=== PATIENT | male | born 1950 ===

== ENCOUNTER 2017-01-28 09:48 | Observation (INO) | payer MEDICARE, OTHER ==
[2017-01-28 10:00] VITALS: BMI 28.4
--- NOTE | 2017-01-28 10:41 | ED PDOC ---
Lower Extremity Pain/Injury Time Seen by Provider: 01/28/17 09:59 Chief Complaint (Nursing): Hip Pain Chief Complaint (Provider): Hip pain, left History Per: Patient History/Exam Limitations: no limitations Onset/Duration Of Symptoms: Days (A month) Current Symptoms Are (Timing): Still Present Severity: Moderate Additional History Per: Patient Additional Complaint(s): 66 y/o male brought in by PMD for left hip pain for a month. Pain is worse with movement and ambulation. Denies trauma. No weakness, paresthesias, numbness. No bladder or bowel incontinence. Patient had lumbar spinal surgery several years ago. PMD: Deo Hargrove MD Past Medical History Reviewed: Historical Data, Nursing Documentation, Vital Signs Vital Signs: Last Vital Signs Temp 97 F L 01/28/17 09:58 Pulse 54 L 01/28/17 09:58 Resp BP 137/79 01/28/17 09:58 Pulse Ox 98 01/28/17 09:58 - Medical History PMH: Cardia Arrhythmia (nora=code), HTN Denies: Depression - Surgical History Surgical History: Tonsillectomy Other surgeries: Lumbar spinal surgery several years ago - Family History Family History: States: Unknown Family Hx - Home Medications Home Medications: Ambulatory Orders Medication Instructions Recorded Ascorbic Acid [Vitamin C 500 mg 1 tab PO DAILY 01/28/17 Tab] Brimonidine 0.2% [Alphagan 0.2% 1 drop LEFTEYE BID 01/28/17 Opht] Calcium Carbonate/Vitamin D3 1 tab PO BID 01/28/17 [Caltrate 600 Plus D3 Tablet] Cyanocobalamin (Vitamin B-12) 1 spray [place]ON SUN 01/28/17 [Nascobal] Dorzolamide 2% [Trusopt] 1 drop LEFTEYE BID 01/28/17 Febuxostat [Uloric] 80 mg PO DAILY 01/28/17 Glucosa Roque 2Kcl/Chondroitin Roque 1 cap PO DAILY 01/28/17 [Glucosamine & Chondroitin Cap] L.acidoph,Paracasei, B.lactis 1 cap PO DAILY 01/28/17 [Probiotic] Levothyroxine [Synthroid] 25 mcg PO DAILY 01/28/17 Mangosteen 1 tab PO BID 01/28/17 [place]-3 Fatty Acids/Fish Oil [Fish 1 cap PO BID 01/28/17 Oil 1,000 mg Capsule] Pyridostigmine [Mestinon Tab] 60 mg PO TID 01/28/17 Rosuvastatin Calcium [Crestor] 10 mg PO HS 01/28/17 Timolol 0.5% Ophth [Timoptic 0.5% 1 drop RIGHTEYE DAILY 01/28/17 Ophth Soln] Turmeric/Turmeric Root Extract 1 cap PO BID 01/28/17 [Turmeric 500 mg Capsule] Vitamin E [Vitamin E 400 Units Cap] 400 unit PO DAILY 01/28/17 predniSONE [predniSONE Tab] 25 mg PO DAILY 01/28/17 valACYclovir [Valtrex] 1 gm PO DAILY 01/28/17 - Allergies Allergies/Adverse Reactions: Allergies Allergy/AdvReac Type Severity Reaction Status Date / Time No Known Allergies Allergy Verified 02/21/14 16:39 Review of Systems ROS Statement: Except As Marked, All Systems Reviewed And Found Negative Constitutional: Negative for: Other (Trauma) Genitourinary Male: Negative for: Incontinence (Bladder or bowel) Musculoskeletal: Positive for: Other (Left hip pain) Neurological: Negative for: Weakness, Numbness, Other (paresthesias) Physical Exam - Reviewed Nursing Documentation Reviewed: Yes Vital Signs Reviewed: Yes - Physical Exam Appears: Positive for: Well, Non-toxic, No Acute Distress Head Exam: Positive for: ATRAUMATIC Skin: Positive for: Normal Color, Warm, Dry Eye Exam: Positive for: Normal appearance Neck: Positive for: Normal, Supple Cardiovascular/Chest: Positive for: Regular Rate, Rhythm Respiratory: Positive for: Normal Breath Sounds. Negative for: Rales, Rhonchi, Wheezing Pulses-Dorsalis Pedis (L): 2+ Pulses-Dorsalis Pedis (R): 2+ Back: Positive for: Vertebral Tenderness (Tenderness to the left lumbar area), Other (Straight leg raise greater than 30 degrees) Extremity: Positive for: Normal ROM (x4) Neurologic/Psych: Positive for: Alert, Oriented. Negative for: Motor/Sensory Deficits - Laboratory Results Result Diagrams: 01/29/17 07:45 01/29/17 07:45 - ECG O2 Sat by Pulse Oximetry: 98 (RA) Pulse Ox Interpretation: Normal Medical Decision Making Medical Decision Making: Initial Impression: * Brought in by PMD for left hip pain for a month. Initial Plan: * Blood work up * EKG * Chest x-ray * Morphine Time: 10:30 10:35. Patient evaluated by Dr. Hargrove. DDx: intractable pain Scribe Attestation Documented by Tiffanie hickman acting as a scribe for Lorelei Shook MD. Provider Attestation: All medical record entries made by the Scribe were at my direction and personally dictated by me. I have reviewed the chart and agree that the record accurately reflects my personal performance of the history, physical exam, medical decision making, and the department course for this patient. I have also personally directed, reviewed, and agree with the discharge instructions and disposition. Disposition - Clinical Impression Clinical Impression: Intractable pain, Hip pain - Patient ED Disposition Is Patient to be Admitted: Yes - Disposition Disposition Time: 10:32 Condition: STABLE - Pt Status Changed To: Hospital Disposition Of: Inpatient - Admit Certification Admit to Inpatient:: After my assessment, the patient will require hospitalization for at least two midnights. This is because of the severity of symptoms shown, intensity of services needed, and/or the medical risk in this patient being treated as an outpatient. - POA Present On Arrival: None
--- NOTE | 2017-01-28 10:56 | RAD ---
HISTORY: Medical clearance COMPARISON: Frontal chest radiograph 03/15/2012. FINDINGS: LUNGS: A dense nodular focus is appreciate the left base laterally which appears more dense than bone may reflect an interval calcified granuloma. No definite acute infiltrate is appreciated. PLEURA: No significant pleural effusion identified, no pneumothorax apparent. CARDIOVASCULAR: Normal. OSSEOUS STRUCTURES: No significant abnormalities. VISUALIZED UPPER ABDOMEN: Normal. OTHER FINDINGS: Sternotomy wires are again identified. IMPRESSION: Interval dense nodular focus is seen at the left base suspicious for calcified granuloma. No acute infiltrate or pleural effusion identified this time.
[2017-01-28 11:13] LABS: BASO # 0.1 K/uL (0.0-0.2); BASO % 0.5 % (0.0-2.0); EOS % 0.1 % (0.0-4.0); HEMATOCRIT 45.9 % (35.0-51.0); LYMPH % 7.1 % (20.0-40.0); MEAN CELL VOLUME 95.4 fl (80.0-94.0); MEAN CORPUSCULAR HEMOGLOBIN 32.9 pg (27.0-31.0); MEAN CORPUSCULAR HGB CONC 34.5 g/dL (33.0-37.0); MEAN PLATELET VOLUME 7.9 fl (7.2-11.7); MONO # 0.8 K/uL (0.0-0.8); MONO % 6.2 % (0.0-10.0); NEUT # 11.8 K/uL (1.8-7.0); NEUT % 86.1 % (50.0-75.0); NRBC % 0.2 % (0.0-0.0); PLATELET COUNT 197 K/uL (130-400); WHITE BLOOD COUNT 13.7 K/uL (4.8-10.8)
[2017-01-28 11:19] LABS: ALB/GLOB RATIO 1.4 (1.0-2.1); ALKALINE PHOSPHATASE 47 U/L (38-126); ALT/SGPT 57 U/L (21-72); AST/SGOT 47 U/L (17-59); BILIRUBIN,TOTAL 1.6 mg/dl (0.2-1.3); BLOOD UREA NITROGEN 15 mg/dl (9-20); CALCIUM 9.8 mg/dL (8.4-10.2); CARBON DIOXIDE 25 mmol/L (22-30); CHLORIDE 108 mmol/L (98-107); GFR AFRICAN-AMERICAN > 60; GLUCOSE,RANDOM 98 mg/dL (75-110); POTASSIUM 4.4 MMOL/L (3.6-5.0); SODIUM 142 mmol/l (132-148); TOTAL PROTEIN 6.9 G/DL (6.3-8.2)
[2017-01-28 12:10] LABS: NEUTROPHIL 87 % (42-75); REACTIVE LYMPHOCYTES 2 % (0-0); TOTAL CELLS COUNTED 100
[2017-01-28] MEDS ORDERED: Oxycodone/Acetaminophen 5/325 mg Tab PO PRN ×2 (13:07→13:08)
--- NOTE | 2017-01-28 13:11 | CP.PCM.HP ---
History of Present Illness - History of Present Illness History of Present Illness: 66 year old male with PMH of myasthenia gravis, s/p thyroidectomy presented to [facility] with complaints of intractable back pain. He has history of mysethenia gravis and lumbar stenosis. Pain is exacerbated with standing, leaning forward and ambulation. No history of trauma. No weakness or paresthesias, pain does not radiate anywhere and is localized to lumbar spine. No bladder or bowel incontinence. He has right sided residual weakness of upper and lower extremity, worse in upper extremitiy. He has a cataract on his right eye. He denies any chest pain, dyspnea, abdominal pain, nausea, vomiting, diarrhea or constipation, pedal edema. PMD: Dr. Hargrove Medications: Prednisone, mestinon, uloric, crestor levothyroxine, valacyclovir. 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) Other/Comment: Myasthenia Gravis - HEENT Hx HEENT Problems: Yes Hx Cataracts: Yes (with surgery) - RENAL Hx Chronic Kidney Disease: No - ENDOCRINE/METABOLIC Hx Endocrine Disorders: No - HEMATOLOGICAL/ONCOLOGICAL Hx Blood Transfusions: No Hx Blood Transfusion Reaction: No - INTEGUMENTARY Hx Dermatological Problems: No - MUSCULOSKELETAL/RHEUMATOLOGICAL Hx Musculoskeletal Disorders: Yes Hx Back Pain: Yes Hx Falls: No - GASTROINTESTINAL Hx Gastrointestinal Disorders: No - GENITOURINARY/GYNECOLOGICAL Hx Genitourinary Disorders: No - PSYCHIATRIC Hx Psychophysiologic Disorder: No Hx Depression: No Hx Substance Use: No - SURGICAL HISTORY Hx Cataract Extraction: Yes Hx Tonsillectomy: Yes Other/Comment: Thymectomy, Tracheosotomy and Reversal - ANESTHESIA Hx Anesthesia: Yes Hx Anesthesia Reactions: Yes (unknown) Hx Malignant Hyperthermia: Yes (unknown) Has any member of the family had a problem w/ anesthesia?: No Meds Allergies/Adverse Reactions: Allergies Allergy/AdvReac Type Severity Reaction Status Date / Time No Known Allergies Allergy Verified 02/21/14 16:39 Physical Exam - Constitutional Appears: In Acute Distress (2' to pain) - Head Exam Head Exam: ATRAUMATIC, NORMAL INSPECTION, NORMOCEPHALIC - Eye Exam Additional comments: cataract of right eye - ENT Exam ENT Exam: Mucous Membranes Moist - Respiratory Exam Respiratory Exam: Clear to Auscultation Bilateral, NORMAL BREATHING PATTERN - Cardiovascular Exam Cardiovascular Exam: REGULAR RHYTHM, +S1, +S2 - GI/Abdominal Exam GI & Abdominal Exam: Normal Bowel Sounds, Soft. absent: Distended, Guarding, Organomegaly, Tenderness - Rectal Exam Rectal Exam: Deferred - Extremities Exam Extremities exam: Positive for: normal inspection. Negative for: pedal edema - Back Exam Back exam: NORMAL INSPECTION, tenderness. absent: rash noted - Neurological Exam Neurological exam: Alert Additional comments: gait not assessed - Psychiatric Exam Psychiatric exam: Normal Affect, Normal Mood - Skin Skin Exam: Dry, Intact, Normal Color, Warm Results - Vital Signs Recent Vital Signs: Last Vital Signs Temp 97.7 F 01/28/17 12:10 Pulse 61 01/28/17 12:10 Resp 17 01/28/17 12:11 BP 144/88 01/28/17 12:10 Pulse Ox 99 01/28/17 12:10 - Labs Result Diagrams: 01/28/17 10:35 01/28/17 10:35 Labs: Laboratory Results - last 24 hr 01/28/17 01/28/17 01/28/17 10:35 10:35 10:35 WBC 13.7 H RBC 4.81 Hgb 15.8 Hct 45.9 MCV 95.4 H MCH 32.9 H MCHC 34.5 RDW 18.0 H Plt Count 197 MPV 7.9 Neut % (Auto) 86.1 H Lymph % (Auto) 7.1 L [place] % (Auto) 6.2 Eos % (Auto) 0.1 Baso % (Auto) 0.5 Neut # 11.8 H Lymph # 1.0 [place] # 0.8 Eos # 0.0 Baso # 0.1 Neutrophils % (Manual) 87 H Band Neutrophils % 1 Lymphocytes % (Manual) 5 L Reactive Lymphs % 2 H Monocytes % (Manual) 5 Toxic Granulation Present Platelet Estimate Normal Anisocytosis (manual) Slight PT 10.5 INR 1.0 APTT 28.0 Sodium 142 Potassium 4.4 Chloride 108 H Carbon Dioxide 25 Anion Gap 13 BUN 15 Creatinine 1.2 Est GFR ( Amer) > 60 Est GFR (Non-Af Amer) > 60 Random Glucose 98 Calcium 9.8 Total Bilirubin 1.6 H AST 47 ALT 57 Alkaline Phosphatase 47 Total Protein 6.9 Albumin 4.0 Globulin 2.9 Albumin/Globulin Ratio 1.4 Assessment & Plan - Assessment and Plan (Free Text) Assessment: 66 year old male with hx of myasthenia gravis and lumbar stenosis admitted for intractable back pain. Will obtain Neurosurgery consult, Dr. Boucher and Cardio consult: Dr. Neal. #Intractable pain #Lumbar stenosis #Myesthenia gravis #Hypothyroidism, s/p thyroidectomy #DVT Prophylaxis -pain control as ordered -resume home medications -cbc/bmp/pt/ptt/inr -ekg, echo -CXR -consults as above patient seen and examined with attending
[2017-01-28 16:27] VITALS: RESP 18
--- NOTE | 2017-01-28 16:51 | CP.PCM.CON ---
History of Present Illness - History of Present Illness History of Present Illness: Patient is a 66 year old male with PMH, HTN, CVA who presents with intractable back pain. The patient has a previous CVA and has had a previous back surgery. The patient denies chest pain or dyspnea. Review of Systems - Constitutional Constitutional: absent: As Per HPI, Anorexia, Chills, Daytime Sleepiness, Excessive Sweating, Fatigue, Fever, Frequent Falls, Headache, Increased Appetite , Lethargy, Malaise, Night Sweats, Snoring, Sleep Apnea, Weight Gain, Weight Loss, Weakness, Other - EENT Eyes: absent: As Per HPI, Blind Spots, Blurred Vision, Change in Vision, Decreased Night Vision, Diplopia, Discharge, Dry Eye, Exophthalmos, Floaters, Irritation, Itchy Eyes, Loss of Peripheral Vision, Pain, Photophobia, Requires Corrective Lenses, Sees Flashes, Spots in Vision, Tunnel Vision, Other Visual Disturbances, Loss of Vision, Other Nose/Mouth/Throat: absent: As Per HPI, Epistaxis, Nasal Congestion, Nasal Discharge, Nasal Obstruction, Nasal Trauma, Nose Pain, Post Nasal Drip, Sinus Pain, Sinus Pressure, Bleeding Gums, Change in Voice, Dental Pain, Dry Mouth, Dysphagia, Halitosis, Hoarsness, Lip Swelling, Mouth Lesions, Mouth Pain, Odynophagia, Sore Throat, Throat Swelling, Tongue Swelling, Facial Pain, Neck Pain, Neck Mass, Other - Cardiovascular Cardiovascular: absent: As Per HPI, Acrocyanosis, Chest Pain, Chest Pain at Rest , Chest Pain with Activity, Claudication, Diaphoresis, Dyspnea, Dyspnea on Exertion, Edema, Irregular Heart Rhythm, Pain Radiating to Arm/Neck/Jaw, Leg Edema, Leg Ulcers, Lightheadedness, Orthopnea, Palpitations, Paroxysmal Nocturnal Dyspnea, Pedal Edema, Radiating Pain, Rapid Heart Rate, Slow Heart Rate, Syncope, Other - Respiratory Respiratory: absent: As Per HPI, Cough, Dyspnea, Hemoptysis, Dyspnea on Exertion , Wheezing, Snoring, Stridor, Pain on Inspiration, Chest Congestion, Excessive Mucous Production, Change in Mucous Color, Pain with Coughing, Other - Gastrointestinal Gastrointestinal: absent: As Per HPI, Abdominal Pain, Belching, Bloating, Change in Bowel Habits, Change in Stool Character, Coffee Ground Emesis, Constipation, Cramping, Diarrhea, Dyspepsia, Dysphagia, Early Satiety, Excessive Flatus, Fecal Incontinence, Heartburn, Hematemesis, Hematochezia, Loose Stools, Melena, Nausea, Odynophagia, Temesmus, Vomiting, Other - Genitourinary Genitourinary: absent: As Per HPI, Change in Urinary Stream, Difficulty Urinating, Dysuria, Flank Pain, Hematuria, Pyuria, Nocturia, Urinary Incontinence, Urinary Frequency, Urinary Hesitance, Urinary Urgency, Voiding Freq/Small Amts, Freq UTI, Hx Renal/Bladder Calculi, Hx /Renal Surgery, Bladder Distension, Other - Musculoskeletal Musculoskeletal: Radiating Pain into Limb - Integumentary Integumentary: absent: As Per HPI, Acne, Alopecia, Bleeding Lesions, Change in Hair, Change in Nails, Change in Pigmentation, Changing Lesions, Dry Skin, Erythema, Furuncle, Hirsutism, Lesions, New Lesions, Non-Healing Lesions, Photosensitivity, Pruritus, Rash, Skin Pain, Skin Ulcer, Sores, Striae, Swelling , Unusual Bruising, Wounds, Jaundice, Other - Neurological Neurological: absent: As Per HPI, Abnormal Gait, Abnormal Hearing, Abnormal Movements, Abnormal Speech, Behavioral Changes, Burning Sensations, Confusion, Convulsions, Disequilibrium, Dizziness, Numbness, Focal Weakness, Frequent Falls , Headaches, Lack of Coordination, Loss of Vision, Memory Loss, Paresthesias, Radicular Pain, Restless Legs, Sensory Deficit, Syncope, Tingling, Tremor, Vertigo, Weakness, Other Visual Disturbances, Other - Psychiatric Psychiatric: absent: As Per HPI, Abnormal Sleep Pattern, Anhedonia, Anxiety, Auditory Hallucinations, Behavioral Changes, Change in Appetite, Change in Libido, Confusion, Depression, Difficulty Concentrating, Hallucinations, Homicidal Ideation, Hopelessness, Irritability, Memory Loss, Mood Swings, Panic Attacks, Paranoia, Suicidal Ideation, Visual Hallucinations, Tactile Hallucinations, Other - Endocrine Endocrine: absent: As Per HPI, Change in Body Appearance, Change in Libido, Cold Intolorance, Deepening of Voice, Excessive Sweating, Fatigue, Flushing, Heat Intolorance, Increase in Ring/Shoe/Hat Size, Palpitations, Polydipsia, Polyphagia, Polyuria, Other - Hematologic/Lymphatic Hematologic: absent: As Per HPI, Easy Bleeding, Easy Bruising, Lymphadenopathy, Other Past Patient History - Infectious Disease Hx of Infectious Diseases: None - Tetanus Immunizations Tetanus Immunization: Unknown - Past Medical History & Family History Past Medical History?: Yes - Past Social History Smoking Status: Never Smoked - CARDIAC Hx Cardiac Disorders: Yes Hx Cardia Arrhythmia: Yes (bradycardia) Hx Hypertension: Yes - PULMONARY Hx Respiratory Disorders: No - NEUROLOGICAL Hx Neurological Disorder: Yes HX Cerebrovascular Accident: Yes (right upper extremity weakness) Other/Comment: Myasthenia Gravis - HEENT Hx HEENT Problems: Yes Hx Cataracts: Yes (with surgery) - RENAL Hx Chronic Kidney Disease: No - ENDOCRINE/METABOLIC Hx Endocrine Disorders: No - HEMATOLOGICAL/ONCOLOGICAL Hx Blood Transfusions: No Hx Blood Transfusion Reaction: No - INTEGUMENTARY Hx Dermatological Problems: No - MUSCULOSKELETAL/RHEUMATOLOGICAL Hx Musculoskeletal Disorders: Yes Hx Back Pain: Yes Hx Falls: No - GASTROINTESTINAL Hx Gastrointestinal Disorders: No - GENITOURINARY/GYNECOLOGICAL Hx Genitourinary Disorders: No - PSYCHIATRIC Hx Psychophysiologic Disorder: No Hx Depression: No Hx Substance Use: No - SURGICAL HISTORY Hx Cataract Extraction: Yes Hx Tonsillectomy: Yes Other/Comment: Thymectomy, Tracheosotomy and Reversal - ANESTHESIA Hx Anesthesia: Yes Hx Anesthesia Reactions: Yes (unknown) Hx Malignant Hyperthermia: Yes (unknown) Has any member of the family had a problem w/ anesthesia?: No Meds Allergies/Adverse Reactions: Allergies Allergy/AdvReac Type Severity Reaction Status Date / Time No Known Allergies Allergy Verified 02/21/14 16:39 - Medications Medications: Current Medications Acetaminophen (Tylenol 325mg Tab) 650 mg PO Q6 PRN PRN Reason: Pain, Mild (1-3) Ascorbic Acid (Vitamin C 500 Mg Tab) 500 mg PO DAILY [facility] Atorvastatin Calcium (Lipitor) 20 mg PO DAILY [facility] Brimonidine Tartrate (Alphagan 0.2% Opht) 1 drop OS BID [facility] Dorzolamide HCl (Trusopt) 1 drop OS BID [facility] Home Med ([place]-3 Fatty Acids/Fish Oil [Fish Oil 1,000 Mg Capsule]) 1 cap PO BID [facility] Home Med (Valacyclovir [Valtrex]) 1 gm PO DAILY [facility] Levothyroxine Sodium (Synthroid) 25 mcg PO DAILY [facility] Oxycodone/Acetaminophen (Percocet 5/325 Mg Tab) 1 tab PO Q4 PRN PRN Reason: Pain, moderate (4-7) Stop: 01/31/17 13:08 Oxycodone/Acetaminophen (Percocet 5/325 Mg Tab) 2 tab PO Q6 PRN PRN Reason: Pain, severe (8-10) Stop: 01/31/17 13:09 Prednisone (Prednisone Tab) 25 mg PO DAILY [facility] Pyridostigmine [place] (Mestinon Tab) 60 mg PO TID [facility] Timolol Maleate (Timoptic 0.5% Ophth Soln) 1 drop OD DAILY [facility] Physical Exam - Constitutional Appears: Non-toxic - Head Exam Head Exam: NORMAL INSPECTION - Eye Exam Eye Exam: Normal appearance - ENT Exam ENT Exam: Mucous Membranes Moist - Neck Exam Neck exam: Positive for: Full Rom - Respiratory Exam Respiratory Exam: NORMAL BREATHING PATTERN - Cardiovascular Exam Cardiovascular Exam: REGULAR RHYTHM - GI/Abdominal Exam GI & Abdominal Exam: Normal Bowel Sounds - Rectal Exam Rectal Exam: Deferred - Extremities Exam Extremities exam: Positive for: pedal edema - Back Exam Back exam: CVA tenderness (L) - Neurological Exam Neurological exam: Alert - Psychiatric Exam Psychiatric exam: Normal Affect - Skin Skin Exam: Normal Color Results - Vital Signs Recent Vital Signs: Last Vital Signs Temp 97.7 F 01/28/17 16:26 Pulse 55 L 01/28/17 16:26 Resp 18 01/28/17 16:26 BP 138/88 01/28/17 16:26 Pulse Ox 97 01/28/17 16:26 - Labs Result Diagrams: 01/28/17 10:35 01/28/17 10:35 Labs: Laboratory Results - last 24 hr 01/28/17 01/28/17 01/28/17 10:35 10:35 10:35 WBC 13.7 H RBC 4.81 Hgb 15.8 Hct 45.9 MCV 95.4 H MCH 32.9 H MCHC 34.5 RDW 18.0 H Plt Count 197 MPV 7.9 Neut % (Auto) 86.1 H Lymph % (Auto) 7.1 L [place] % (Auto) 6.2 Eos % (Auto) 0.1 Baso % (Auto) 0.5 Neut # 11.8 H Lymph # 1.0 [place] # 0.8 Eos # 0.0 Baso # 0.1 Neutrophils % (Manual) 87 H Band Neutrophils % 1 Lymphocytes % (Manual) 5 L Reactive Lymphs % 2 H Monocytes % (Manual) 5 Toxic Granulation Present Platelet Estimate Normal Anisocytosis (manual) Slight PT 10.5 INR 1.0 APTT 28.0 Sodium 142 Potassium 4.4 Chloride 108 H Carbon Dioxide 25 Anion Gap 13 BUN 15 Creatinine 1.2 Est GFR ( Amer) > 60 Est GFR (Non-Af Amer) > 60 Random Glucose 98 Calcium 9.8 Total Bilirubin 1.6 H AST 47 ALT 57 Alkaline Phosphatase 47 Total Protein 6.9 Albumin 4.0 Globulin 2.9 Albumin/Globulin Ratio 1.4 Blood Type Antibody Screen BBK History Checked 01/28/17 10:35 WBC RBC Hgb Hct MCV MCH MCHC RDW Plt Count MPV Neut % (Auto) Lymph % (Auto) [place] % (Auto) Eos % (Auto) Baso % (Auto) Neut # Lymph # [place] # Eos # Baso # Neutrophils % (Manual) Band Neutrophils % Lymphocytes % (Manual) Reactive Lymphs % Monocytes % (Manual) Toxic Granulation Platelet Estimate Anisocytosis (manual) PT INR APTT Sodium Potassium Chloride Carbon Dioxide Anion Gap BUN Creatinine Est GFR ( Amer) Est GFR (Non-Af Amer) Random Glucose Calcium Total Bilirubin AST ALT Alkaline Phosphatase Total Protein Albumin Globulin Albumin/Globulin Ratio Blood Type A POSITIVE Antibody Screen Negative BBK History Checked Patient has bt - EKG Data EKG Interpreted by: Myself Assessment & Plan (1) Spinal stenosis Assessment and Plan: patient has a previous CVA. I recommend echocardiogram to assess LV function. This should be done prior to surgery. Status: Acute
[2017-01-28] MEDS ORDERED: FATTY ACIDS PO SCH (17:00)
[2017-01-28] MEDS ORDERED: OMEGA PO SCH (17:00)
[2017-01-28] MEDS ORDERED: FISH OIL PO SCH (17:00)
[2017-01-28] MEDS: Brimonidine 0.2% 50 DROP/5 ML BOTTLE OS SCH (17:14)
[2017-01-28] MEDS: Dorzolamide 2% Ophth Soln OS SCH (17:14)
[2017-01-28] MEDS ORDERED: Pneumococcal 23-Valent Vaccine IM ONE (21:00)
[2017-01-29 07:33] VITALS: TEMP 97.5; O2SAT 98
[2017-01-29 07:34] VITALS: BP 134/84; PULSE 54
--- NOTE | 2017-01-29 08:01 | CP.PCM.CON ---
History of Present Illness - History of Present Illness History of Present Illness: Dr. 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 Past Patient History - Infectious Disease Hx of Infectious Diseases: None - Tetanus Immunizations Tetanus Immunization: Unknown - Past Medical History & Family History Past Medical History?: Yes - Past Social History Smoking Status: Never Smoked - CARDIAC Hx Cardiac Disorders: Yes Hx Cardia Arrhythmia: Yes (bradycardia) Hx Hypertension: Yes - PULMONARY Hx Respiratory Disorders: No - NEUROLOGICAL Hx Neurological Disorder: Yes HX Cerebrovascular Accident: Yes (right upper extremity weakness) Other/Comment: Myasthenia Gravis - HEENT Hx HEENT Problems: Yes Hx Cataracts: Yes (with surgery) - RENAL Hx Chronic Kidney Disease: No - ENDOCRINE/METABOLIC Hx Endocrine Disorders: No - HEMATOLOGICAL/ONCOLOGICAL Hx Blood Transfusions: No Hx Blood Transfusion Reaction: No - INTEGUMENTARY Hx Dermatological Problems: No - MUSCULOSKELETAL/RHEUMATOLOGICAL Hx Musculoskeletal Disorders: Yes Hx Back Pain: Yes Hx Falls: No - GASTROINTESTINAL Hx Gastrointestinal Disorders: No - GENITOURINARY/GYNECOLOGICAL Hx Genitourinary Disorders: No - PSYCHIATRIC Hx Psychophysiologic Disorder: No Hx Depression: No Hx Substance Use: No - SURGICAL HISTORY Hx Cataract Extraction: Yes Hx Tonsillectomy: Yes Other/Comment: Thymectomy, Tracheosotomy and Reversal - ANESTHESIA Hx Anesthesia: Yes Hx Anesthesia Reactions: Yes (unknown) Hx Malignant Hyperthermia: Yes (unknown) Has any member of the family had a problem w/ anesthesia?: No Meds Allergies/Adverse Reactions: Allergies Allergy/AdvReac Type Severity Reaction Status Date / Time No Known Allergies Allergy Verified 02/21/14 16:39 - Medications Medications: Current Medications Acetaminophen (Tylenol 325mg Tab) 650 mg PO Q6 PRN PRN Reason: Pain, Mild (1-3) Ascorbic Acid (Vitamin C 500 Mg Tab) 500 mg PO DAILY [facility] Atorvastatin Calcium (Lipitor) 20 mg PO DAILY [facility] Brimonidine Tartrate (Alphagan 0.2% Opht) 1 drop OS BID [facility] Last Admin: 01/28/17 17:14 Dose: 1 drop Dorzolamide HCl (Trusopt) 1 drop OS BID [facility] Last Admin: 01/28/17 17:14 Dose: 1 drop Home Med ([place]-3 Fatty Acids/Fish Oil [Fish Oil 1,000 Mg Capsule]) 1 cap PO BID [facility] Home Med (Valacyclovir [Valtrex]) 1 gm PO DAILY [facility] Levothyroxine Sodium (Synthroid) 25 mcg PO DAILY [facility] Oxycodone/Acetaminophen (Percocet 5/325 Mg Tab) 1 tab PO Q4 PRN PRN Reason: Pain, moderate (4-7) Stop: 01/31/17 13:08 Oxycodone/Acetaminophen (Percocet 5/325 Mg Tab) 2 tab PO Q6 PRN PRN Reason: Pain, severe (8-10) Stop: 01/31/17 13:09 Prednisone (Prednisone Tab) 25 mg PO DAILY [facility] Pyridostigmine [place] (Mestinon Tab) 60 mg PO TID [facility] Last Admin: 01/28/17 17:14 Dose: 60 mg Timolol Maleate (Timoptic 0.5% Ophth Soln) 1 drop OD DAILY [facility] Physical Exam - Constitutional Appears: Well, Non-toxic, No Acute Distress - Head Exam Head Exam: ATRAUMATIC, NORMAL INSPECTION, NORMOCEPHALIC - Eye Exam Additional comments: blind right eye/calcification,left pupil 2-3 and brisk,EOMI - ENT Exam ENT Exam: Mucous Membranes Moist - Neck Exam Additional comments: healed anterior inferior cervical scar - Respiratory Exam Respiratory Exam: Clear to Auscultation Bilateral - Cardiovascular Exam Cardiovascular Exam: REGULAR RHYTHM - GI/Abdominal Exam GI & Abdominal Exam: Normal Bowel Sounds, Soft - Rectal Exam Rectal Exam: Deferred - Extremities Exam Extremities exam: Positive for: normal capillary refill, pedal pulses present - Back Exam Back exam: vertebral tenderness - Neurological Exam Neurological exam: Alert, Oriented x3 Additional comments: ACUNA x 4 antigravity with RUE,left Knee extension and left dorsiflexion weakness, decreased sensation,depressed DTR's,neg babinski - Psychiatric Exam Psychiatric exam: Normal Affect, Normal Mood - Skin Skin Exam: Dry, Intact Results - Vital Signs Recent Vital Signs: Last Vital Signs Temp 97.5 F L 01/29/17 07:32 Pulse 54 L 01/29/17 07:32 Resp 18 01/29/17 07:32 BP 134/84 01/29/17 07:32 Pulse Ox 98 01/29/17 07:32 - Labs Result Diagrams: 01/29/17 07:45 01/29/17 07:45 Labs: Laboratory Results - last 24 hr 01/28/17 01/28/17 01/28/17 10:35 10:35 10:35 WBC 13.7 H RBC 4.81 Hgb 15.8 Hct 45.9 MCV 95.4 H MCH 32.9 H MCHC 34.5 RDW 18.0 H Plt Count 197 MPV 7.9 Neut % (Auto) 86.1 H Lymph % (Auto) 7.1 L [place] % (Auto) 6.2 Eos % (Auto) 0.1 Baso % (Auto) 0.5 Neut # 11.8 H Lymph # 1.0 [place] # 0.8 Eos # 0.0 Baso # 0.1 Neutrophils % (Manual) 87 H Band Neutrophils % 1 Lymphocytes % (Manual) 5 L Reactive Lymphs % 2 H Monocytes % (Manual) 5 Toxic Granulation Present Platelet Estimate Normal Anisocytosis (manual) Slight PT 10.5 INR 1.0 APTT 28.0 Sodium 142 Potassium 4.4 Chloride 108 H Carbon Dioxide 25 Anion Gap 13 BUN 15 Creatinine 1.2 Est GFR ( Amer) > 60 Est GFR (Non-Af Amer) > 60 Random Glucose 98 Calcium 9.8 Total Bilirubin 1.6 H AST 47 ALT 57 Alkaline Phosphatase 47 Total Protein 6.9 Albumin 4.0 Globulin 2.9 Albumin/Globulin Ratio 1.4 Blood Type Antibody Screen BBK History Checked 01/28/17 10:35 WBC RBC Hgb Hct MCV MCH MCHC RDW Plt Count MPV Neut % (Auto) Lymph % (Auto) [place] % (Auto) Eos % (Auto) Baso % (Auto) Neut # Lymph # [place] # Eos # Baso # Neutrophils % (Manual) Band Neutrophils % Lymphocytes % (Manual) Reactive Lymphs % Monocytes % (Manual) Toxic Granulation Platelet Estimate Anisocytosis (manual) PT INR APTT Sodium Potassium Chloride Carbon Dioxide Anion Gap BUN Creatinine Est GFR ( Amer) Est GFR (Non-Af Amer) Random Glucose Calcium Total Bilirubin AST ALT Alkaline Phosphatase Total Protein Albumin Globulin Albumin/Globulin Ratio Blood Type A POSITIVE Antibody Screen Negative BBK History Checked Patient has bt Assessment & Plan - Assessment and Plan (Free Text) Assessment: 66 yo with multiple medical problems,Lumbar Spondylosis with LLE radiculapathy Plan: pt to have proposed Decompressive Lumbar Laminectomy of Left L3-L4, L4-[address] Boucher,await cardiac clearance post echo. Addendum: echo reviewed by cardiology,pt has cardiac clearance,surgery cancelled secondary to O.R. equipment failure
--- NOTE | 2017-01-29 08:11 | PQF GENQUE ---
This form is a permanent part of the medical record 01/29/17 Dr. Hargrove, Documentation of a history of CVA and Myasthenia Gravis. There is documentation of right sided residual weakness of upper and lower extremity and there is also documentation of just right upper extremity weakness. Please clarify if the patient may have Hemiparesis from a previous CVA vs Monoparesis or other explanation. Clarification of your documentation is requested to better reflect the severity of illness and intensity of treatment of your patient. PHYSICIAN'S RESPONSE [] Right sided hemiparesis from a previous CVA [] Right arm monoparesis from a previous CVA [] Other explanation please specify [] Unable to determine Based on your medical judgment of the clinical indicators outlined above please clarify the following: [] Practitioner response [] If unable to determine, please check the box, sign and date. Present On Admission (POA) Indicator: [] Present at the time of admission [] Not present at the time of admission [] Clinically Undetermined In responding to this query, please exercise your independent professional judgment. The fact that a question is asked does not imply that any particular answer is desired or expected. Thank you for your clarification on this documentation. If you have any questions please call:extension [phone] * Thank you, Wendie Chaney RN CDMP [facility]
--- NOTE | 2017-01-29 08:45 | CARD ---
APPROVED REPORT EKG Measurement Heart [id number] <Conclusion> Sinus bradycardia Otherwise normal ECG
[2017-01-29 08:56] LABS: MEAN CELL VOLUME 96.5 fl (80.0-94.0); MEAN CORPUSCULAR HEMOGLOBIN 32.8 pg (27.0-31.0); MEAN CORPUSCULAR HGB CONC 33.9 g/dL (33.0-37.0); RED CELL DISTRIBUTION WIDTH 18.4 % (11.5-14.5); WHITE BLOOD COUNT 10.7 K/uL (4.8-10.8)
[2017-01-29 08:59] LABS: BLOOD UREA NITROGEN 17 mg/dl (9-20); CALCIUM 8.6 mg/dL (8.4-10.2); CARBON DIOXIDE 26 mmol/L (22-30); CHLORIDE 109 mmol/L (98-107); GFR AFRICAN-AMERICAN > 60; GLUCOSE,RANDOM 85 mg/dL (75-110); POTASSIUM 3.9 MMOL/L (3.6-5.0); SODIUM 143 mmol/l (132-148)
[2017-01-29] MEDS ORDERED: Levothyroxine 25 MCG TAB PO SCH (09:00)
[2017-01-29] MEDS ORDERED: Absorbable Gelatin Sponge Size 12-7 ONE (09:30)
[2017-01-29] MEDS ORDERED: Thrombin Topical 5,000 IU Spray Kit ONE (09:31)
[2017-01-29] MEDS ORDERED: Lidocaine 2% w Epi 1:100,000 Inj IJ ONE (09:31)
[2017-01-29] MEDS ORDERED: Bupivacaine HCl 0.25% PF (30 ml) Inj ONE (09:31)
[2017-01-29] MEDS: Brimonidine 0.2% 50 DROP/5 ML BOTTLE OS SCH ×2 (09:54→12:09)
[2017-01-29] MEDS: Dorzolamide 2% Ophth Soln OS SCH ×2 (09:56→11:52)
--- NOTE | 2017-01-29 09:59 | CP.PCM.PCO ---
Physician Communication Note - Physician Communication Note Physician Communication Note: Per Dr. Neal after review of echo, pt is cleared for surgery
--- NOTE | 2017-01-29 10:02 | CP.PCM.PN ---
Subjective - Date & Time of Evaluation Date of Evaluation: 01/29/17 Time of Evaluation: 10:00 - Subjective Subjective: Patient remains stable ECHO showed normal LV function Discussed with DR Neal and patient is cardiac cleared. Lindsay sno fever. Objective - Vital Signs/Intake and Output Vital Signs (last 24 hours): Temp Pulse Resp BP Pulse Ox 97.5 F L 54 L 18 134/84 98 01/29/17 09:00 01/29/17 09:00 01/29/17 09:00 01/29/17 09:00 01/29/17 09:00 - Medications Medications: Current Medications Acetaminophen (Tylenol 325mg Tab) 650 mg PO Q6 PRN PRN Reason: Pain, Mild (1-3) Ascorbic Acid (Vitamin C 500 Mg Tab) 500 mg PO DAILY [facility] Last Admin: 01/29/17 09:54 Dose: Not Given Atorvastatin Calcium (Lipitor) 20 mg PO DAILY [facility] Last Admin: 01/29/17 09:54 Dose: Not Given Brimonidine Tartrate (Alphagan 0.2% Opht) 1 drop OS BID [facility] Last Admin: 01/29/17 09:54 Dose: Not Given Dorzolamide HCl (Trusopt) 1 drop OS BID [facility] Last Admin: 01/29/17 09:56 Dose: Not Given Home Med ([place]-3 Fatty Acids/Fish Oil [Fish Oil 1,000 Mg Capsule]) 1 cap PO BID [facility] Home Med (Valacyclovir [Valtrex]) 1 gm PO DAILY [facility] Levothyroxine Sodium (Synthroid) 25 mcg PO DAILY [facility] Last Admin: 01/29/17 09:47 Dose: 25 mcg Oxycodone/Acetaminophen (Percocet 5/325 Mg Tab) 1 tab PO Q4 PRN PRN Reason: Pain, moderate (4-7) Stop: 01/31/17 13:08 Oxycodone/Acetaminophen (Percocet 5/325 Mg Tab) 2 tab PO Q6 PRN PRN Reason: Pain, severe (8-10) Stop: 01/31/17 13:09 Prednisone (Prednisone Tab) 25 mg PO DAILY [facility] Last Admin: 01/29/17 09:47 Dose: 25 mg Pyridostigmine [place] (Mestinon Tab) 60 mg PO TID [facility] Last Admin: 01/29/17 09:47 Dose: 60 mg Timolol Maleate (Timoptic 0.5% Ophth Soln) 1 drop OD DAILY [facility] Last Admin: 01/29/17 09:54 Dose: Not Given - Labs Labs: 01/29/17 07:45 01/29/17 07:45 PT 10.5 Seconds (9.8-13.1) 01/28/17 10:35 INR 1.0 (0.9-1.2) 01/28/17 10:35 APTT 28.0 Seconds (25.6-37.1) 01/28/17 10:35 - Head Exam Head Exam: NORMAL INSPECTION - Eye Exam Eye Exam: Normal appearance - ENT Exam ENT Exam: Mucous Membranes Moist - Cardiovascular Exam Cardiovascular Exam: REGULAR RHYTHM - GI/Abdominal Exam GI & Abdominal Exam: Normal Bowel Sounds - Neurological Exam Neurological Exam: Awake, Oriented x3 Assessment and Plan (1) Lumbar stenosis Status: Acute (2) Lumbar foraminal stenosis Status: Acute (3) Myasthenia gravis Status: Acute (4) Hypothyroidism Status: Acute - Assessment and Plan (Free Text) Plan: Cont meds medically stable for surgery will follow up cont prednisone postop.
--- NOTE | 2017-01-29 10:10 | CARD ---
APPROVED REPORT EXAM: Two-dimensional and M-mode echocardiogram with Doppler and color Doppler. Other Information Quality : GoodRhythm : NSR INDICATION Pre-Op 2D DIMENSIONS IVSd1.23 (0.7-1.1cm)LVDd5.20 (3.9-5.9cm) LVOT Diameter3.38 (1.8-2.4cm)PWd1.28 (0.7-1.1cm) IVSs1.60 (0.8-1.2cm)LVDs3.50 (2.5-4.0cm) FS (%) 32.6 %PWs1.34 (0.8-1.2cm) M-Mode DIMENSIONS Left Atrium (MM)2.78 (2.5-4.0cm)IVSd1.92 (0.7-1.1cm) Aortic Root5.29 (2.2-3.7cm)LVDd5.06 (4.0-5.6cm) Aortic Cusp Exc.2.18 (1.5-2.0cm)PWd1.72 (0.7-1.1cm) IVSs2.18 cmFS (%) 42 % LVDs2.94 (2.0-3.8cm)PWs1.82 cm Aortic Valve AI P 1/2 [id number] Mitral Valve E/A ratio0.0 TDI E/Lateral E'0.0E/Medial E'0.0 Pulmonary Valve PV Peak Avgxyldo45.6cm/s LEFT VENTRICLE The left ventricle is normal size. There is moderate concentric left ventricular hypertrophy. Left ventricle systolic function is normal. The Ejection Fraction is 60-65%. There is normal LV segmental wall motion. Transmitral Doppler flow pattern is Grade I-abnormal relaxation pattern. RIGHT VENTRICLE The right ventricle is mildly dilated. There is normal right ventricular wall thickness. The right ventricular systolic function is normal. ATRIA The left atrium size is normal. The right atrium size is normal. AORTIC VALVE The aortic valve is mildly sclerotic. There is moderate to severe aortic regurgitation. There is no aortic valvular stenosis. MITRAL VALVE The mitral valve is normal in structure and function. There is no evidence of mitral valve prolapse. There is no mitral valve stenosis. There is no mitral valve regurgitation noted. TRICUSPID VALVE The tricuspid valve is normal in structure and function. There is no tricuspid valve regurgitation noted. PULMONIC VALVE The pulmonary valve is normal in structure. There is mild pulmonic valvular regurgitation. GREAT VESSELS The aortic root is moderately enlarged. The IVC was not visualized. PERICARDIAL EFFUSION The pericardium appears normal. <Conclusion> The left ventricle is normal size. There is moderate concentric left ventricular hypertrophy. There is normal LV segmental wall motion. Left ventricle systolic function is normal. The Ejection Fraction is 60-65%. Transmitral Doppler flow pattern is Grade I-abnormal relaxation pattern. There is moderate to severe aortic regurgitation. The aortic root is moderately enlarged.
[2017-01-29] MEDS ORDERED: Succinylcholine 200 mg/10 ml Inj IV ONE (10:13)
[2017-01-29] MEDS ORDERED: Phenylephrine 10 mg/ml Inj ONE (10:13)
[2017-01-29] MEDS ORDERED: ePHEDrine 50 mg/ml Inj ONE (10:13)
[2017-01-29] MEDS ORDERED: Midazolam 2 MG/2 ML VIAL ONE (10:13)
[2017-01-29] MEDS ORDERED: Propofol 10 mg/ml Inj (20 ML) ONE (10:13)
[2017-01-29] MEDS ORDERED: Rocuronium 10 mg/ml (5 ml) ONE (10:25)
[2017-01-29] MEDS ORDERED: Etomidate 20 mg/10ml Inj IV ONE (10:29)
--- NOTE | 2017-01-29 11:39 | CP.PCM.CON ---
History of Present Illness - History of Present Illness History of Present Illness: 66 yo man, originally scheduled for surgery but subsequently canceled, is referred for pain management. Patient states that he's developed this pain for about 2 years. It's constant, worse with walking, mainly over the left buttock to the left upper thigh. He denies pain further down the left leg, in the lower back, or on the right side. Over the years, he's tried therapy, medications including opioids and NSAIDs, and at least two injections without success. After surgery was canceled due to equipment issues, he'd still like to proceed with surgery. He refused injection when offered and declined medications. Past Patient History - Infectious Disease Hx of Infectious Diseases: None - Tetanus Immunizations Tetanus Immunization: Unknown - Past Medical History & Family History Past Medical History?: Yes - Past Social History Smoking Status: Never Smoked - CARDIAC Hx Cardiac Disorders: Yes Hx Cardia Arrhythmia: Yes (bradycardia) Hx Hypertension: Yes - PULMONARY Hx Respiratory Disorders: No - NEUROLOGICAL Hx Neurological Disorder: Yes HX Cerebrovascular Accident: Yes (right upper extremity weakness) Other/Comment: Myasthenia Gravis - HEENT Hx HEENT Problems: Yes Hx Cataracts: Yes (with surgery) - RENAL Hx Chronic Kidney Disease: No - ENDOCRINE/METABOLIC Hx Endocrine Disorders: No - HEMATOLOGICAL/ONCOLOGICAL Hx Blood Transfusions: No Hx Blood Transfusion Reaction: No - INTEGUMENTARY Hx Dermatological Problems: No - MUSCULOSKELETAL/RHEUMATOLOGICAL Hx Musculoskeletal Disorders: Yes Hx Back Pain: Yes Hx Falls: No - GASTROINTESTINAL Hx Gastrointestinal Disorders: No - GENITOURINARY/GYNECOLOGICAL Hx Genitourinary Disorders: No - PSYCHIATRIC Hx Psychophysiologic Disorder: No Hx Depression: No Hx Substance Use: No - SURGICAL HISTORY Hx Cataract Extraction: Yes Hx Tonsillectomy: Yes Other/Comment: Thymectomy, Tracheosotomy and Reversal - ANESTHESIA Hx Anesthesia: Yes Hx Anesthesia Reactions: Yes (unknown) Hx Malignant Hyperthermia: Yes (unknown) Has any member of the family had a problem w/ anesthesia?: No Meds Allergies/Adverse Reactions: Allergies Allergy/AdvReac Type Severity Reaction Status Date / Time No Known Allergies Allergy Verified 02/21/14 16:39 - Medications Medications: Current Medications Acetaminophen (Tylenol 325mg Tab) 650 mg PO Q6 PRN PRN Reason: Pain, Mild (1-3) Ascorbic Acid (Vitamin C 500 Mg Tab) 500 mg PO DAILY [facility] Last Admin: 01/29/17 09:54 Dose: Not Given Atorvastatin Calcium (Lipitor) 20 mg PO DAILY [facility] Last Admin: 01/29/17 09:54 Dose: Not Given Brimonidine Tartrate (Alphagan 0.2% Opht) 1 drop OS BID [facility] Last Admin: 01/29/17 09:54 Dose: Not Given Dorzolamide HCl (Trusopt) 1 drop OS BID [facility] Last Admin: 01/29/17 09:56 Dose: Not Given Home Med ([place]-3 Fatty Acids/Fish Oil [Fish Oil 1,000 Mg Capsule]) 1 cap PO BID [facility] Home Med (Valacyclovir [Valtrex]) 1 gm PO DAILY [facility] Levothyroxine Sodium (Synthroid) 25 mcg PO DAILY [facility] Last Admin: 01/29/17 09:47 Dose: 25 mcg Oxycodone/Acetaminophen (Percocet 5/325 Mg Tab) 1 tab PO Q4 PRN PRN Reason: Pain, moderate (4-7) Stop: 01/31/17 13:08 Oxycodone/Acetaminophen (Percocet 5/325 Mg Tab) 2 tab PO Q6 PRN PRN Reason: Pain, severe (8-10) Stop: 01/31/17 13:09 Prednisone (Prednisone Tab) 25 mg PO DAILY [facility] Last Admin: 01/29/17 09:47 Dose: 25 mg Pyridostigmine [place] (Mestinon Tab) 60 mg PO TID [facility] Last Admin: 01/29/17 09:47 Dose: 60 mg Timolol Maleate (Timoptic 0.5% Ophth Soln) 1 drop OD DAILY [facility] Last Admin: 01/29/17 09:54 Dose: Not Given Physical Exam - Respiratory Exam Respiratory Exam: NORMAL BREATHING PATTERN - Cardiovascular Exam Cardiovascular Exam: REGULAR RHYTHM - Back Exam Additional comments: TTP over left sacroiliac joint and left sciatic notch. SLR negative on the left. Lumbar spine nontender to palpation. Results - Vital Signs Recent Vital Signs: Last Vital Signs Temp 97.5 F L 01/29/17 09:00 Pulse 54 L 01/29/17 09:00 Resp 18 01/29/17 09:00 BP 134/84 01/29/17 09:00 Pulse Ox 98 01/29/17 09:00 - Labs Result Diagrams: 01/29/17 07:45 01/29/17 07:45 Labs: Laboratory Results - last 24 hr 01/28/17 01/28/17 01/29/17 10:35 10:35 07:45 WBC 10.7 RBC 4.55 Hgb 14.9 Hct 44.0 MCV 96.5 H MCH 32.8 H MCHC 33.9 RDW 18.4 H Plt Count 169 Neutrophils % (Manual) 87 H Band Neutrophils % 1 Lymphocytes % (Manual) 5 L Reactive Lymphs % 2 H Monocytes % (Manual) 5 Toxic Granulation Present Platelet Estimate Normal Anisocytosis (manual) Slight Sodium Potassium Chloride Carbon Dioxide Anion Gap BUN Creatinine Est GFR ( Amer) Est GFR (Non-Af Amer) Random Glucose Calcium Blood Type A POSITIVE Antibody Screen Negative BBK History Checked Patient has bt 01/29/17 07:45 WBC RBC Hgb Hct MCV MCH MCHC RDW Plt Count Neutrophils % (Manual) Band Neutrophils % Lymphocytes % (Manual) Reactive Lymphs % Monocytes % (Manual) Toxic Granulation Platelet Estimate Anisocytosis (manual) Sodium 143 Potassium 3.9 Chloride 109 H Carbon Dioxide 26 Anion Gap 12 BUN 17 Creatinine 1.2 Est GFR ( Amer) > 60 Est GFR (Non-Af Amer) > 60 Random Glucose 85 Calcium 8.6 Blood Type Antibody Screen BBK History Checked Assessment & Plan (1) Lumbar stenosis Assessment and Plan: 66 yo man w/ chronic lower back pain refractory to treatments thus far. MRI showed L4-5 stenosis, more on the right, and diffuse spondylotic changes. His pain could potentially from left sacroiliac joint. At this point, he refuses further injection and would like to proceed with surgery. - f/u with Dr. Boucher for surgery planning Status: Acute
== END 2017-01-29 16:11 | disposition home or self-care (01) ==
LOC: H.ER 09:48 → H.ERHOLD 10:32 → INTOOBSV 10:32 → H.MEDSURG1 11:56
PROVIDERS: ADMIT Family Medicine; ATTEND Family Medicine
DX: M48.06 Spinal stenosis, lumbar region (principal); M47.26 Other spondylosis with radiculopathy, lumbar region; G70.00 Myasthenia gravis without (acute) exacerbation; E89.0 Postprocedural hypothyroidism; I10 Essential (primary) hypertension; H26.9 Unspecified cataract; I69.351 Hemiplegia and hemiparesis following cerebral infarction affecting right dominant side
CPT/HCPCS: 36415; 71010; 80048; 80053; 85025; 85027; 85610; 85730; 86850; 86900; 93005; 93306; 96374; 99285; G0378; J0330; J0690; J2001; J2250; J2270; J2370; J2704; J3010

== ENCOUNTER 2017-02-04 14:49 | Inpatient (IN) | payer OTHER ==
[2017-02-04 14:49] VITALS: BMI 28.4
[2017-02-04] MEDS ORDERED: Sodium Chloride 0.9% 1,000 ML IV STA (15:33)
--- NOTE | 2017-02-04 15:33 | ED PDOC ---
HPI: General Adult Time Seen by Provider: 02/04/17 15:07 Chief Complaint (Nursing): Medical Clearance Chief Complaint (Provider): Back Pain History Per: Patient Additional Complaint(s): 66 year old male with PMH of myasthenia gravis, s/p thyroidectomy presented to [facility] with complaints of intractable back pain. He has history of mysethenia gravis and lumbar stenosis. Pain is exacerbated with standing, leaning forward and ambulation. No history of trauma. No weakness or paresthesias, pain does not radiate anywhere and is localized to lumbar spine. No bladder or bowel incontinence. He has right sided residual weakness of upper and lower extremity, worse in upper extremitiy. He has a cataract on his right eye. He denies any chest pain, dyspnea, abdominal pain, nausea, vomiting, diarrhea or constipation, pedal edema. PMD: Dr. Hargrove Medications: Prednisone, mestinon, uloric, crestor levothyroxine, valacyclovir. Allergies: NKDA Surgical: thyroidectomy 2009, lumbar disc operation 1987 Past Medical History Reviewed: Nursing Documentation, Vital Signs Vital Signs: Last Vital Signs Temp 98.6 F 02/04/17 18:35 Pulse 74 02/04/17 18:35 Resp 20 02/04/17 18:35 BP 124/78 02/04/17 18:35 Pulse Ox 98 02/04/17 18:35 - Medical History PMH: Cardia Arrhythmia (nora=code), HTN Denies: Depression, Chronic Kidney Disease - Surgical History Surgical History: Tonsillectomy - Family History Family History: States: Unknown Family Hx - Living Arrangements Living Arrangements: With Family - Social History Current smoker - smoking cessation education provided: No Alcohol: None Drugs: Denies - Home Medications Home Medications: Ambulatory Orders Medication Instructions Recorded Ascorbic Acid [Vitamin C 500 mg 1 tab PO DAILY 01/28/17 Tab] Brimonidine 0.2% [Alphagan 0.2% 1 drop LEFTEYE BID 01/28/17 Opht] Calcium Carbonate/Vitamin D3 1 tab PO BID 01/28/17 [Caltrate 600 Plus D3 Tablet] Cyanocobalamin (Vitamin B-12) 1 spray SOLOMON SUN 01/28/17 [Nascobal] Dorzolamide 2% [Trusopt] 1 drop LEFTEYE BID 01/28/17 Febuxostat [Uloric] 80 mg PO DAILY 01/28/17 Glucosa Roque 2Kcl/Chondroitin Roque 1 cap PO DAILY 01/28/17 [Glucosamine & Chondroitin Cap] L.acidoph,Paracasei, B.lactis 1 cap PO DAILY 01/28/17 [Probiotic] Levothyroxine [Synthroid] 25 mcg PO DAILY 01/28/17 Mangosteen 1 tab PO BID 01/28/17 [place]-3 Fatty Acids/Fish Oil [Fish 1 cap PO BID 01/28/17 Oil 1,000 mg Capsule] Pyridostigmine [Mestinon Tab] 60 mg PO TID 01/28/17 Rosuvastatin Calcium [Crestor] 10 mg PO HS 01/28/17 Timolol 0.5% Ophth [Timoptic 0.5% 1 drop RIGHTEYE DAILY 01/28/17 Ophth Soln] Turmeric/Turmeric Root Extract 1 cap PO BID 01/28/17 [Turmeric 500 mg Capsule] Vitamin E [Vitamin E 400 Units Cap] 400 unit PO DAILY 01/28/17 predniSONE [predniSONE Tab] 25 mg PO DAILY 01/28/17 valACYclovir [Valtrex] 1 gm PO DAILY 01/28/17 - Allergies Allergies/Adverse Reactions: Allergies Allergy/AdvReac Type Severity Reaction Status Date / Time No Known Allergies Allergy Verified 02/21/14 16:39 Review of Systems ROS Statement: Except As Marked, All Systems Reviewed And Found Negative Musculoskeletal: Positive for: Back Pain Physical Exam - Reviewed Nursing Documentation Reviewed: Yes Vital Signs Reviewed: Yes - Physical Exam Appears: Positive for: Well, Non-toxic, No Acute Distress Head Exam: Positive for: ATRAUMATIC, NORMAL INSPECTION, NORMOCEPHALIC Skin: Positive for: Normal Color, Warm, DRY Eye Exam: Positive for: EOMI, Normal appearance, PERRL ENT: Positive for: Normal ENT Inspection Neck: Positive for: Normal, Painless ROM Cardiovascular/Chest: Positive for: Regular Rate, Rhythm Respiratory: Positive for: CNT, Normal Breath Sounds Gastrointestinal/Abdominal: Positive for: Normal Exam, Bowel Sounds, Soft Back: Positive for: Normal Inspection Extremity: Positive for: Normal ROM Neurologic/Psych: Positive for: Alert, Oriented - Laboratory Results Result Diagrams: 02/04/17 15:42 02/04/17 15:45 - ECG O2 Sat by Pulse Oximetry: 95 Medical Decision Making Medical Decision Making: Pt was admitted last week and underwent medical clearance in order to go to OR with Dr. Boucher. Surgery was cancelled due to equipment issues however. Echo results from 01/29/17: Patient remains stable ECHO showed normal LV function Discussed with DR Neal and patient is cardiac cleared. Lindsay sno fever. CXR: NAD, as read by BLAISE EKG cleared by ED MD Glucose 185 CBC with WBC 13.4 Dip: (-) leuks, nites, blood Dr. Hargrove contacted and arrangements made for admission. Dr. Boucher aware Disposition - Clinical Impression Clinical Impression: Intractable back pain - Patient ED Disposition Is Patient to be Admitted: Yes - Disposition Disposition Time: 18:43 Condition: STABLE - POA Present On Arrival: None
[2017-02-04 16:14] LABS: BASO # 0.1 K/uL (0.0-0.2); BASO % 0.5 % (0.0-2.0); LYMPH % 7.2 % (20.0-40.0); MEAN CELL VOLUME 96.1 fl (80.0-94.0); MEAN CORPUSCULAR HEMOGLOBIN 32.9 pg (27.0-31.0); MEAN CORPUSCULAR HGB CONC 34.3 g/dL (33.0-37.0); MONO # 0.5 K/uL (0.0-0.8); MONO % 3.5 % (0.0-10.0); NEUT # 11.9 K/uL (1.8-7.0); NEUT % 88.8 % (50.0-75.0); NRBC % 0.3 % (0.0-0.0); PLATELET COUNT 207 K/uL (130-400); RED CELL DISTRIBUTION WIDTH 18.2 % (11.5-14.5); WHITE BLOOD COUNT 13.4 K/uL (4.8-10.8)
[2017-02-04 16:24] LABS: PARTIAL THROMBOPLASTIN TIME 29.1 Seconds (25.6-37.1)
[2017-02-04 16:33] LABS: ALB/GLOB RATIO 1.5 (1.0-2.1); BILIRUBIN,TOTAL 1.6 mg/dl (0.2-1.3); CALCIUM 9.8 mg/dL (8.4-10.2); POTASSIUM 4.3 MMOL/L (3.6-5.0); TOTAL PROTEIN 6.6 G/DL (6.3-8.2)
--- NOTE | 2017-02-04 16:38 | RAD ---
HISTORY: med screening COMPARISON: Chest radiograph 01/28/2017 prior TECHNIQUE: Chest PA and lateral FINDINGS: LUNGS: No active pulmonary disease. PLEURA: No significant pleural effusion identified. No pneumothorax apparent. CARDIOVASCULAR: Cardiomediastinal silhouette is stable. Sternotomy wires are again appreciated 3 OSSEOUS STRUCTURES: No significant abnormalities. VISUALIZED UPPER ABDOMEN: Normal. OTHER FINDINGS: None. IMPRESSION: No acute cardiopulmonary disease or significant interval change identified compared 01/28/2017 radiograph.
[2017-02-04 18:09] LABS: RBC URINE 2 /hpf (0-3); URINE BILIRUBIN NEGATIVE (NEGATIVE); URINE BLOOD NEGATIVE (NEGATIVE); URINE COLOR STRAW (YELLOW); URINE GLUCOSE (UA) NEG (Normal); URINE KETONE NEGATIVE (NEGATIVE); URINE LEUKOCYTE ESTERASE NEG Leu/uL (Negative); URINE PROTEIN NEGATIVE (NEGATIVE); URINE UROBILINOGEN 0.2-1.0 mg/dL (0.2-1.0); WBC URINE < 1 /hpf (0-5)
[2017-02-04 18:11] LABS: NEUTROPHIL 82 % (42-75); REACTIVE LYMPHOCYTES 2 % (0-0); TOTAL CELLS COUNTED 100
--- NOTE | 2017-02-05 05:33 | CP.PCM.HP ---
History of Present Illness - History of Present Illness History of Present Illness: This is a 67 y/o male admitted for intractable lower back pain and radiculopathy. He has a hx of myasthenia gravis and has been stable after treatment. Currently on Prednisone. For the past few years , he has been suffering from lower back pain and has worsened in the past few months. He was started on pain medications and phys therapy but to no avail. He has no trauma Claims that in the last few weeks pain has worsened vene more that he could barely walk and pain was aggravated by movement such as standing and stooping. Pain medications were increase but to no avail hence admitted for intractable pain. Latest MRI showed lumbar spondylosis and canal stenosis. Medical Hx. Hypothyroidism Nyasthenia Gravis Hyperlipidemia Currently on prednisone mestinin crestor and levothyroxine. Present on Admission - Present on Admission Any Indicators Present on Admission: No History of DVT/PE: No History of Uncontrolled Diabetes: No Urinary Catheter: No Decubitus Ulcer Present: No Review of Systems - Musculoskeletal Musculoskeletal: Abnormal Gait, Arthralgias, Back Pain Past Patient History - Infectious Disease Hx of Infectious Diseases: None - Tetanus Immunizations Tetanus Immunization: Unknown - Past Medical History & Family History Past Medical History?: Yes - Past Social History Alcohol: None Drugs: Denies - CARDIAC Hx Cardia Arrhythmia: Yes (nora=code) Hx Hypertension: Yes - PULMONARY Hx Respiratory Disorders: No - NEUROLOGICAL Hx Neurological Disorder: Yes HX Cerebrovascular Accident: Yes (right upper extremity weakness) Other/Comment: Myasthenia Gravis - HEENT Hx HEENT Problems: Yes Hx Cataracts: Yes (with surgery) - RENAL Hx Chronic Kidney Disease: No - ENDOCRINE/METABOLIC Hx Endocrine Disorders: No - HEMATOLOGICAL/ONCOLOGICAL Hx Blood Transfusions: No Hx Blood Transfusion Reaction: No - INTEGUMENTARY Hx Dermatological Problems: No - MUSCULOSKELETAL/RHEUMATOLOGICAL Hx Musculoskeletal Disorders: Yes Hx Back Pain: Yes Hx Falls: No - GASTROINTESTINAL Hx Gastrointestinal Disorders: No - GENITOURINARY/GYNECOLOGICAL Hx Genitourinary Disorders: No - PSYCHIATRIC Hx Depression: No - SURGICAL HISTORY Hx Tonsillectomy: Yes - ANESTHESIA Hx Anesthesia: Yes Hx Anesthesia Reactions: Yes (unknown) Hx Malignant Hyperthermia: Yes (unknown) Meds Allergies/Adverse Reactions: Allergies Allergy/AdvReac Type Severity Reaction Status Date / Time No Known Allergies Allergy Verified 02/21/14 16:39 Physical Exam - Head Exam Head Exam: NORMAL INSPECTION - Eye Exam Eye Exam: Normal appearance - ENT Exam ENT Exam: Mucous Membranes Moist - Respiratory Exam Respiratory Exam: Clear to Auscultation Bilateral - Cardiovascular Exam Cardiovascular Exam: REGULAR RHYTHM - GI/Abdominal Exam GI & Abdominal Exam: Normal Bowel Sounds - Neurological Exam Neurological exam: CN II-XII Intact, Normal Gait - Psychiatric Exam Psychiatric exam: Normal Mood Results - Vital Signs Recent Vital Signs: Last Vital Signs Temp 97.8 F 02/04/17 23:57 Pulse 72 02/04/17 23:57 Resp 20 02/04/17 23:57 BP 125/81 02/04/17 23:57 Pulse Ox 98 02/04/17 23:57 - Labs Result Diagrams: 02/04/17 15:42 02/04/17 15:45 Labs: Laboratory Results - last 24 hr 02/04/17 02/04/17 02/04/17 15:42 15:42 15:45 WBC 13.4 H RBC 4.89 Hgb 16.1 Hct 47.0 MCV 96.1 H MCH 32.9 H MCHC 34.3 RDW 18.2 H Plt Count 207 MPV 8.0 Neut % (Auto) 88.8 H Lymph % (Auto) 7.2 L [place] % (Auto) 3.5 Eos % (Auto) 0.0 Baso % (Auto) 0.5 Neut # 11.9 H Lymph # 1.0 [place] # 0.5 Eos # 0.0 Baso # 0.1 Neutrophils % (Manual) 82 H Band Neutrophils % 2 Lymphocytes % (Manual) 9 L Reactive Lymphs % 2 H Monocytes % (Manual) 5 Toxic Granulation Present Platelet Estimate Normal Anisocytosis (manual) Slight Macrocytosis (manual) Slight PT 10.4 INR 1.0 APTT 29.1 Sodium 139 Potassium 4.3 Chloride 106 Carbon Dioxide 21 L Anion Gap 16 BUN 18 Creatinine 1.9 H Est GFR ( Amer) 43 Est GFR (Non-Af Amer) 36 Random Glucose 185 H Calcium 9.8 Total Bilirubin 1.6 H AST 41 ALT 51 Alkaline Phosphatase 52 Total Protein 6.6 Albumin 4.0 Globulin 2.7 Albumin/Globulin Ratio 1.5 Urine Color Urine Clarity Urine pH Ur Specific [place] Urine Protein Urine Glucose (UA) Urine Ketones Urine Blood Urine Nitrate Urine Bilirubin Urine Urobilinogen Ur Leukocyte Esterase Urine RBC (Auto) Urine Microscopic WBC 02/04/17 17:40 WBC RBC Hgb Hct MCV MCH MCHC RDW Plt Count MPV Neut % (Auto) Lymph % (Auto) [place] % (Auto) Eos % (Auto) Baso % (Auto) Neut # Lymph # [place] # Eos # Baso # Neutrophils % (Manual) Band Neutrophils % Lymphocytes % (Manual) Reactive Lymphs % Monocytes % (Manual) Toxic Granulation Platelet Estimate Anisocytosis (manual) Macrocytosis (manual) PT INR APTT Sodium Potassium Chloride Carbon Dioxide Anion Gap BUN Creatinine Est GFR ( Amer) Est GFR (Non-Af Amer) Random Glucose Calcium Total Bilirubin AST ALT Alkaline Phosphatase Total Protein Albumin Globulin Albumin/Globulin Ratio Urine Color Straw Urine Clarity Clear Urine pH 7.0 Ur Specific [place] 1.006 Urine Protein Negative Urine Glucose (UA) Neg Urine Ketones Negative Urine Blood Negative Urine Nitrate Negative Urine Bilirubin Negative Urine Urobilinogen 0.2-1.0 Ur Leukocyte Esterase Neg Urine RBC (Auto) 2 Urine Microscopic WBC < 1 Assessment & Plan (1) Intractable back pain Status: Acute (2) Hypothyroidism Status: Acute (3) Lumbar foraminal stenosis Status: Acute (4) Lumbar stenosis Status: Acute (5) Myasthenia gravis Status: Acute - Assessment and Plan (Free Text) Plan: Hydrate keep NPO medically stable for surgery consult with Dr munguia pain meds
[2017-02-05] MEDS ORDERED: Lidocaine 2% w Epi 1:100,000 Inj IJ ONE ×2 (07:15→07:42)
[2017-02-05] MEDS ORDERED: Absorbable Gelatin Sponge Size 100 ONE (07:15)
[2017-02-05] MEDS ORDERED: Bupivacaine HCl 0.25% PF (30 ml) Inj ONE (07:15)
[2017-02-05] MEDS ORDERED: Thrombin Topical 5,000 IU Spray Kit ONE (07:16)
[2017-02-05] MEDS ORDERED: Propofol 10 mg/ml Inj (20 ML) ONE ×3 (07:17→09:24)
[2017-02-05] MEDS ORDERED: Midazolam 2 MG/2 ML VIAL ONE (07:17)
[2017-02-05] MEDS ORDERED: Rocuronium 10 mg/ml (5 ml) ONE (07:17)
[2017-02-05] MEDS ORDERED: ePHEDrine 50 mg/ml Inj ONE (07:17)
[2017-02-05] MEDS ORDERED: Succinylcholine 200 mg/10 ml Inj IV ONE (07:19)
[2017-02-05] MEDS ORDERED: Phenylephrine 10 mg/ml Inj ONE (07:19)
--- NOTE | 2017-02-05 07:43 | CP.PCM.PN ---
Subjective - Date & Time of Evaluation Date of Evaluation: 02/05/17 Time of Evaluation: 07:00 - Subjective Subjective: pt c/o LBP radiating BLE worse LLE with paresthesias and difficulty walking,pt was to have a proposed Decompressive Laminectomy last week,surgery had to be cancelled and re scheduled due to equipment failure in OR,pt here for proposed Decompressive Hemilaminectomy Left L3-4, L4-5,please refer to prior consultation note from 01/29/17 for full hx.denies bowel and bladder incontinance or pelvic paresthesias. Objective - Vital Signs/Intake and Output Vital Signs (last 24 hours): Temp Pulse Resp BP Pulse Ox 97.8 F 72 20 125/81 98 02/04/17 23:57 02/04/17 23:57 02/04/17 23:57 02/04/17 23:57 02/04/17 23:57 - Medications Medications: Current Medications Sodium Chloride (Sodium Chloride 0.9%) 1,000 mls @ 125 mls/hr IV .Q8H SHERRI Stop: 02/05/17 18:58 Levothyroxine Sodium (Synthroid) 25 mcg PO DAILY SHERRI Prednisone (Prednisone Tab) 25 mg PO DAILY SHERRI Pyridostigmine [place] (Mestinon Tab) 60 mg PO TID SHERRI - Labs Labs: 02/04/17 15:42 02/04/17 15:45 PT 10.4 Seconds (9.8-13.1) 02/04/17 15:42 INR 1.0 (0.9-1.2) 02/04/17 15:42 APTT 29.1 Seconds (25.6-37.1) 02/04/17 15:42 - Constitutional Appears: Well, Non-toxic, No Acute Distress - Head Exam Head Exam: ATRAUMATIC, NORMAL INSPECTION, NORMOCEPHALIC - Eye Exam Additional comments: blind in right eye,left pupil 2 and reactive,EOMI - ENT Exam ENT Exam: Mucous Membranes Moist - Respiratory Exam Respiratory Exam: Clear to Ausculation Bilateral - Cardiovascular Exam Cardiovascular Exam: REGULAR RHYTHM - GI/Abdominal Exam GI & Abdominal Exam: Soft, Normal Bowel Sounds - Extremities Exam Extremities Exam: Normal Capillary Refill, Normal Inspection - Back Exam Back Exam: vertebral tenderness - Neurological Exam Neurological Exam: Alert, Oriented x3 Additional comments: ACUNA x 4 antigravity with RUE,Left dorsiflexion and knee extension weakness, decreased sensation,depressed DTR's,neg babinski,no pelvic paresthesias - Psychiatric Exam Psychiatric exam: Normal Affect, Normal Mood - Skin Skin Exam: Dry, Intact Assessment and Plan - Assessment and Plan (Free Text) Assessment: Lumbar Spondylosis/HNP and LLE radiculapathy Plan: Decompressive Laminectomy Left L3-4, L4-[address] Boucher,risks and benefits d/w pt,A+Ox3,expressed understanding and wishes to proceed.
[2017-02-05] MEDS ORDERED: Lactated Ringer's 1,000 ML IV ONE (07:50)
[2017-02-05] MEDS: Levothyroxine 25 MCG TAB PO SCH (08:39)
[2017-02-05] MEDS: Sodium Chloride 0.9% 1,000 ML IV SCH ×2 (08:39→16:44)
[2017-02-05] MEDS ORDERED: Thrombin Topical 5,000 IU Spray Kit TOP ONE (09:15)
[2017-02-05] MEDS ORDERED: HEMOSTATIC MATRIX 10 ML DIS.NEEDLE TOP ONE (09:15)
[2017-02-05] MEDS ORDERED: Absorbable Gelatin Sponge Size 100 TP ONE (09:15)
[2017-02-05] MEDS ORDERED: Bupivacaine HCl 0.25% PF (30 ml) Inj IJ ONE (09:30)
[2017-02-05] MEDS ORDERED: Oxycodone/Acetaminophen 5/325 mg Tab PO PRN (10:34)
--- NOTE | 2017-02-05 12:16 | CARD ---
APPROVED REPORT EKG Measurement Heart [id number] <Conclusion> Normal sinus rhythm Normal ECG
--- NOTE | 2017-02-05 12:18 | CP.CCUPN ---
CCU Subjective - Physician Review Subjective (Free Text): ICU Post-op admission for overnight monitorinM with h/o of MG in 2012 with Acute Resp failure 2 Myasthenia Gravis crisis, requiring Trach and PEG for mgmt. Today, underwent L3-L4, L4-L5 lumbar laminectomy. Operative course uneventful, received a volatile agent, Fentanyl and midazolam. Since he is steroid dependent, also recd a one-time dose of Solucortef in OR, and given Pyridostigmine pre-op. Successfully extubated in PAR , moving all limbs, and awake and responsive, transitioned from 100% NRBM to 8 LPM face Mask, SPo2 100%. Other vitals and I/O's reviewed. No fever spikes noted, has been more hypothermic than normothermic. ROS: No other pertinent negs or positives on 10+ system review. 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 All Nursing and physician documentation reviewed to date; no new pertinent info noted relevant to current medical problems. MAJOR PROBLEMS: 1. s/p Lumbar Laminectomy 2. Azotemia / Dehydration, r/o CKD 3. Steroid dependent Myasthenia gravis, also on Mestinon 4. Acquired Hypothyroidism with h/o Thymectomy PLAN: 1. Observe for any triggers of Myasthenic crisis. So far no signs of any imminent resp failure since extubation. No specific need now to measure NIF or VC. Maintain close respiratory status observation. 2. Neurochecks Q2H 3. Ongoing Prednisone and Mestinon. 4. Routine check of TFTs as he is on THRT. 5. Cautious IVF hydration. There are no signs of fluid overload or heart failure. CCU Objective - Vital Signs / Intake & Output Vital Signs (Last 4 hours): Vital Signs Temp Pulse Resp BP Pulse Ox 02/05/17 11:10 97.6 F 53 L 18 129/84 99 02/05/17 10:55 55 L 18 137/93 H 99 02/05/17 10:40 59 L 18 143/99 H 100 02/05/17 10:25 55 L 17 127/84 100 02/05/17 10:10 97.4 F L 65 18 137/93 H 100 02/05/17 09:55 97.2 F L 60 18 152/99 H 100 02/05/17 09:40 97.1 F L 59 L 17 121/86 100 Intake and Output (Last 8hrs): Intake & Output 02/04/17 02/05/17 02/05/17 22:59 06:59 14:59 Intake Total 1000 650 Output Total 40 Balance 1000 610 Intake: IV 1000 650 Intravenous #1 1000 Output: Drainage 40 - Physical Exam Head: Positive for: Normocephalic Pupils: Positive for: PERRL, Other (R pupil opacified) Extroacular Muscles: Positive for: EOMI Conjunctiva: Positive for: Normal. Negative for: Icteric Ears: Positive for: Normal Mouth: Positive for: Moist Mucous Membranes Respiratory/Chest: Positive for: Clear to Auscultation. Negative for: Wheezes Cardiovascular: Positive for: Regular Rate and Rhythm. Negative for: Murmurs, Rub Abdomen: Positive for: Normal Bowel Sounds. Negative for: Tenderness, Distention Upper Extremity: Positive for: Normal Inspection, NORMAL PULSES Lower Extremity: Positive for: Normal Inspection, NORMAL PULSES. Negative for: Cyanosis Skin: Positive for: Warm. Negative for: Rashes - Medications Active Medications: Active Medications Generic Name Dose Route Start Last Admin Trade Name Freq PRN Reason Stop Dose Admin Enoxaparin Sodium 40 mg 02/06/17 09:00 Lovenox SC DAILY [facility] Protocol Sodium Chloride 1,000 mls @ 125 mls/hr 02/05/17 06:00 02/05/17 08:39 Sodium Chloride 0.9% IV 02/05/17 18:58 Not Given .Q8H [facility] Cefazolin Sodium 1 gm/ Sodium 100 mls @ 100 mls/hr 02/05/17 17:00 Chloride IVPB Q8 [facility] Levothyroxine Sodium 25 mcg 02/05/17 07:45 02/05/17 08:39 Synthroid PO Not Given DAILY [facility] Morphine Sulfate 2 mg 02/05/17 10:33 Morphine IVP Q4 PRN Pain, severe (8-10) Ondansetron HCl 4 mg 02/05/17 10:35 Zofran Inj IVP Q6 PRN Nausea/Vomiting Oxycodone/Acetaminophen 2 tab 02/05/17 10:34 Percocet 5/325 Mg Tab PO 02/08/17 10:35 Q4 PRN Pain, moderate (4-7) Prednisone 25 mg 02/05/17 07:45 02/05/17 08:39 Prednisone Tab PO Not Given DAILY SHERRI Pyridostigmine [place] 60 mg 02/05/17 07:45 02/05/17 08:39 Mestinon Tab PO Not Given TID SHERRI - Patient Studies Lab Studies: Lab Studies 02/04/17 02/04/17 02/04/17 Range/Units 17:40 15:45 15:42 WBC (4.8-10.8) K/uL RBC (4.40-5.90) Mil/uL Hgb (12.0-18.0) g/dL Hct (35.0-51.0) % MCV (80.0-94.0) fl MCH (27.0-31.0) pg MCHC (33.0-37.0) g/dL RDW (11.5-14.5) % Plt Count (130-400) K/uL MPV (7.2-11.7) fl Neut % (Auto) (50.0-75.0) % Lymph % (Auto) (20.0-40.0) % [place] % (Auto) (0.0-10.0) % Eos % (Auto) (0.0-4.0) % Baso % (Auto) (0.0-2.0) % Neut # (1.8-7.0) K/uL Lymph # (1.0-4.3) K/uL [place] # (0.0-0.8) K/uL Eos # (0.0-0.7) K/uL Baso # (0.0-0.2) K/uL Neutrophils % (Manual) (42-75) % Band Neutrophils % (0-2) % Lymphocytes % (Manual) (20-50) % Reactive Lymphs % (0-0) % Monocytes % (Manual) (0-10) % Toxic Granulation Platelet Estimate (NORMAL) Anisocytosis (manual) Macrocytosis (manual) PT 10.4 (9.8-13.1) Seconds INR 1.0 (0.9-1.2) APTT 29.1 (25.6-37.1) Seconds Sodium 139 (132-148) mmol/l Potassium 4.3 (3.6-5.0) MMOL/L Chloride 106 (98-107) mmol/L Carbon Dioxide 21 L (22-30) mmol/L Anion Gap 16 (10-20) BUN 18 (9-20) mg/dl Creatinine 1.9 H (0.8-1.5) mg/dL Est GFR ( Amer) 43 Est GFR (Non-Af Amer) 36 Random Glucose 185 H (75-110) mg/dL Calcium 9.8 (8.4-10.2) mg/dL Total Bilirubin 1.6 H (0.2-1.3) mg/dl AST 41 (17-59) U/L ALT 51 (21-72) U/L Alkaline Phosphatase 52 (38-126) U/L Total Protein 6.6 (6.3-8.2) G/DL Albumin 4.0 (3.5-5.0) g/dL Globulin 2.7 (2.2-3.9) gm/dL Albumin/Globulin Ratio 1.5 (1.0-2.1) Urine Color Straw (YELLOW) Urine Clarity Clear (Clear) Urine pH 7.0 (5.0-8.0) Ur Specific [place] 1.006 (1.003-1.030) Urine Protein Negative (NEGATIVE) mg/dL Urine Glucose (UA) Neg (Normal) mg/dL Urine Ketones Negative (NEGATIVE) mg/dL Urine Blood Negative (NEGATIVE) Urine Nitrate Negative (NEGATIVE) Urine Bilirubin Negative (NEGATIVE) Urine Urobilinogen 0.2-1.0 (0.2-1.0) mg/dL Ur Leukocyte Esterase Neg (Negative) Lenin/uL Urine RBC (Auto) 2 (0-3) /hpf Urine Microscopic WBC < 1 (0-5) /hpf 02/04/17 Range/Units 15:42 WBC 13.4 H (4.8-10.8) K/uL RBC 4.89 (4.40-5.90) Mil/uL Hgb 16.1 (12.0-18.0) g/dL Hct 47.0 (35.0-51.0) % MCV 96.1 H (80.0-94.0) fl MCH 32.9 H (27.0-31.0) pg MCHC 34.3 (33.0-37.0) g/dL RDW 18.2 H (11.5-14.5) % Plt Count 207 (130-400) K/uL MPV 8.0 (7.2-11.7) fl Neut % (Auto) 88.8 H (50.0-75.0) % Lymph % (Auto) 7.2 L (20.0-40.0) % [place] % (Auto) 3.5 (0.0-10.0) % Eos % (Auto) 0.0 (0.0-4.0) % Baso % (Auto) 0.5 (0.0-2.0) % Neut # 11.9 H (1.8-7.0) K/uL Lymph # 1.0 (1.0-4.3) K/uL [place] # 0.5 (0.0-0.8) K/uL Eos # 0.0 (0.0-0.7) K/uL Baso # 0.1 (0.0-0.2) K/uL Neutrophils % (Manual) 82 H (42-75) % Band Neutrophils % 2 (0-2) % Lymphocytes % (Manual) 9 L (20-50) % Reactive Lymphs % 2 H (0-0) % Monocytes % (Manual) 5 (0-10) % Toxic Granulation Present Platelet Estimate Normal (NORMAL) Anisocytosis (manual) Slight Macrocytosis (manual) Slight PT (9.8-13.1) Seconds INR (0.9-1.2) APTT (25.6-37.1) Seconds Sodium (132-148) mmol/l Potassium (3.6-5.0) MMOL/L Chloride (98-107) mmol/L Carbon Dioxide (22-30) mmol/L Anion Gap (10-20) BUN (9-20) mg/dl Creatinine (0.8-1.5) mg/dL Est GFR ( Amer) Est GFR (Non-Af Amer) Random Glucose (75-110) mg/dL Calcium (8.4-10.2) mg/dL Total Bilirubin (0.2-1.3) mg/dl AST (17-59) U/L ALT (21-72) U/L Alkaline Phosphatase (38-126) U/L Total Protein (6.3-8.2) G/DL Albumin (3.5-5.0) g/dL Globulin (2.2-3.9) gm/dL Albumin/Globulin Ratio (1.0-2.1) Urine Color (YELLOW) Urine Clarity (Clear) Urine pH (5.0-8.0) Ur Specific [place] (1.003-1.030) Urine Protein (NEGATIVE) mg/dL Urine Glucose (UA) (Normal) mg/dL Urine Ketones (NEGATIVE) mg/dL Urine Blood (NEGATIVE) Urine Nitrate (NEGATIVE) Urine Bilirubin (NEGATIVE) Urine Urobilinogen (0.2-1.0) mg/dL Ur Leukocyte Esterase (Negative) [place]/uL Urine RBC (Auto) (0-3) /hpf Urine Microscopic WBC (0-5) /hpf Laboratory Results - last 24 hr 02/04/17 02/04/17 02/04/17 15:42 15:42 15:45 WBC 13.4 H RBC 4.89 Hgb 16.1 Hct 47.0 MCV 96.1 H MCH 32.9 H MCHC 34.3 RDW 18.2 H Plt Count 207 MPV 8.0 Neut % (Auto) 88.8 H Lymph % (Auto) 7.2 L [place] % (Auto) 3.5 Eos % (Auto) 0.0 Baso % (Auto) 0.5 Neut # 11.9 H Lymph # 1.0 [place] # 0.5 Eos # 0.0 Baso # 0.1 Neutrophils % (Manual) 82 H Band Neutrophils % 2 Lymphocytes % (Manual) 9 L Reactive Lymphs % 2 H Monocytes % (Manual) 5 Toxic Granulation Present Platelet Estimate Normal Anisocytosis (manual) Slight Macrocytosis (manual) Slight PT 10.4 INR 1.0 APTT 29.1 Sodium 139 Potassium 4.3 Chloride 106 Carbon Dioxide 21 L Anion Gap 16 BUN 18 Creatinine 1.9 H Est GFR ( Amer) 43 Est GFR (Non-Af Amer) 36 Random Glucose 185 H Calcium 9.8 Total Bilirubin 1.6 H AST 41 ALT 51 Alkaline Phosphatase 52 Total Protein 6.6 Albumin 4.0 Globulin 2.7 Albumin/Globulin Ratio 1.5 Urine Color Urine Clarity Urine pH Ur Specific [place] Urine Protein Urine Glucose (UA) Urine Ketones Urine Blood Urine Nitrate Urine Bilirubin Urine Urobilinogen Ur Leukocyte Esterase Urine RBC (Auto) Urine Microscopic WBC 02/04/17 17:40 WBC RBC Hgb Hct MCV MCH MCHC RDW Plt Count MPV Neut % (Auto) Lymph % (Auto) [place] % (Auto) Eos % (Auto) Baso % (Auto) Neut # Lymph # [place] # Eos # Baso # Neutrophils % (Manual) Band Neutrophils % Lymphocytes % (Manual) Reactive Lymphs % Monocytes % (Manual) Toxic Granulation Platelet Estimate Anisocytosis (manual) Macrocytosis (manual) PT INR APTT Sodium Potassium Chloride Carbon Dioxide Anion Gap BUN Creatinine Est GFR ( Amer) Est GFR (Non-Af Amer) Random Glucose Calcium Total Bilirubin AST ALT Alkaline Phosphatase Total Protein Albumin Globulin Albumin/Globulin Ratio Urine Color Straw Urine Clarity Clear Urine pH 7.0 Ur Specific [place] 1.006 Urine Protein Negative Urine Glucose (UA) Neg Urine Ketones Negative Urine Blood Negative Urine Nitrate Negative Urine Bilirubin Negative Urine Urobilinogen 0.2-1.0 Ur Leukocyte Esterase Neg Urine RBC (Auto) 2 Urine Microscopic WBC < 1 EKG/Cardiology Studies: Cardiology / EKG Studies 02/04/17 15:33 ELECTROCARDIOGRAM Stat Comment: Mode Of Transportation: Reason For Exam: med screening Review of Systems - Review of Systems All systems: reviewed and no additional remarkable complaints except (as above) Critical Care Progress Note - Extremities/Vascular Does the Patient have a Central Venous Catheter?: No Does the Patient need a Central Venous Catheter?: No - Prophylaxis GI Prophylaxis GI: Not Indicated - Prophylaxis DVT Prophylaxis DVT: SCDs - Nutrition Nutrition: Nutrition Category Date Time Status Liquid Diet [DIET] Diets 02/05/17 Lunch Active
--- NOTE | 2017-02-05 14:37 | RAD ---
PROCEDURE: Fluoroscopy up to 1 hr. HISTORY: LUMBAR LAMINECTOMY COMPARISON: None TECHNIQUE: Standard protocol for this study/examination. FINDINGS: Total fluoroscopic time (continuous mode) utilized during the procedure: 5.6 seconds. Submitted images from the current procedure: 1.0 IMPRESSION: Less than 1 hr fluoroscopic time utilized during performance of the procedure.
[2017-02-05] MEDS: ceFAZolin 1 GM in Sodium Chloride 0.9% 100 ML IVPB SCH (16:41)
--- NOTE | 2017-02-06 00:23 | OP ---
PROCEDURE DATE: 02/05/2017 PREOPERATIVE DIAGNOSIS: Lumbar spondylosis, L4-5, L3-4. POSTOPERATIVE DIAGNOSIS: Lumbar spondylosis, L4-5, L3-4. PROCEDURE: Right L3-4, L4-5 hemilaminotomy and medial facetectomy and decompression, L3-L5 posterolateral fusion. SURGEON: Chirag Boucher MD [employer] OPERATOR: Keysha Asencio, physician health care assistant. DESCRIPTION OF PROCEDURE: The patient was brought to the operating room, anesthetized with general endotracheal anesthesia, placed in a prone position on a Micah table. Care was taken to protect all the pressure points. Back of the lumbar area thoroughly prepped and draped in the same sterile manner. The previously made skin incision scar has been noted. This has been opened. Bleeding skins had been controlled with bipolar web software engineer. After using a Bovie web software engineer, paraspinal muscles have been detached, attachments of spinous process, lamina of 3-4, 4-5 on the left side. A Becky retractor had been applied to alter the facet joint and fluoroscopy has been used in order to confirm this level. By using a high-speed drill, the lamina of L3-L4, medial part of the L3-L4 have been drilled. Drilling was continued until the top and bottom of the ligamentum flavum was seen. Drilling was also continued on the medial part of the facets until the turn of the ligamentum flavum has been seen. Once this has been done below the lamina, medial part of the facets and ligamentum flavum had been removed. Similarly at L4-5 medial hemilaminotomy, medial facetectomy including the removing the ligamentum flavum has been achieved. After thinning this bone actual thickness, foraminotomy was performed. Decompression has been achieved at L4-5 as well. Lateral aspect of the facet joint had been decorticated, demineralized bone placed in the area achieving a posterolateral fusion. Hemostasis best achieved. Micah drain placed on the wound and brought out through a separate stab neck skin incision. Muscles and fascia closed with 1 Vicryl, subcutaneous tissue with 3-0 Vicryl and skin had been closed with intradermal 3 Vicryl stitches. The patient tolerated the procedure. After procedure, mobilized to the recovery room in stabilized condition. Chirag Boucher MD [facility] # [id number]
[2017-02-06] MEDS: ceFAZolin 1 GM in Sodium Chloride 0.9% 100 ML IVPB SCH ×3 (01:00→17:49)
[2017-02-06 06:27] LABS: BASO % 0.2 % (0.0-2.0); EOS % 0.1 % (0.0-4.0); HEMATOCRIT 40.8 % (35.0-51.0); LYMPH # 1.4 K/uL (1.0-4.3); LYMPH % 9.9 % (20.0-40.0); MEAN CELL VOLUME 95.4 fl (80.0-94.0); MEAN CORPUSCULAR HEMOGLOBIN 33.1 pg (27.0-31.0); MEAN CORPUSCULAR HGB CONC 34.7 g/dL (33.0-37.0); MONO # 1.7 K/uL (0.0-0.8); MONO % 12.3 % (0.0-10.0); NEUT # 10.7 K/uL (1.8-7.0); NEUT % 77.5 % (50.0-75.0); NRBC % 0.1 % (0.0-0.0); RED CELL DISTRIBUTION WIDTH 18.2 % (11.5-14.5); WHITE BLOOD COUNT 13.8 K/uL (4.8-10.8)
[2017-02-06 06:42] LABS: BLOOD UREA NITROGEN 14 mg/dl (9-20); CALCIUM 8.2 mg/dL (8.4-10.2); CARBON DIOXIDE 22 mmol/L (22-30); CHLORIDE 111 mmol/L (98-107); GFR AFRICAN-AMERICAN > 60; GLUCOSE,RANDOM 88 mg/dL (75-110); POTASSIUM 4.1 MMOL/L (3.6-5.0); SODIUM 141 mmol/l (132-148)
[2017-02-06] MEDS: Enoxaparin 40 mg Syringe SC SCH (08:27)
[2017-02-06] MEDS: Levothyroxine 25 MCG TAB PO SCH (08:29)
[2017-02-07] MEDS: Dorzolamide 2% Ophth Soln OS SCH ×2 (00:29→09:36)
[2017-02-07] MEDS: Brimonidine 0.2% 50 DROP/5 ML BOTTLE OS SCH ×2 (00:30→09:33)
[2017-02-07] MEDS: ceFAZolin 1 GM in Sodium Chloride 0.9% 100 ML IVPB SCH ×2 (00:31→09:33)
[2017-02-07] MEDS: Docusate-Senna 50 mg-8.6 mg Tab PO SCH ×2 (00:31→00:41)
[2017-02-07 08:00] VITALS: BP 125/74; PULSE 56; RESP 20; TEMP 98.1; O2SAT 98
[2017-02-07] MEDS: Enoxaparin 40 mg Syringe SC SCH (09:34)
[2017-02-07] MEDS: Levothyroxine 25 MCG TAB PO SCH (09:37)
--- NOTE | 2017-02-07 12:40 | CP.PCM.PN ---
Subjective - Date & Time of Evaluation Date of Evaluation: 02/07/17 Time of Evaluation: 10:00 - Subjective Subjective: pt seen and examined with attending today. Pt sitting up in chair, at bedside, comfortably, NAD. Reports feeling well overall and pain has improved substantially today. Drain removed. No BM yet. Tolerating PO intake w/o difficutly. No other complaints. Objective - Vital Signs/Intake and Output Vital Signs (last 24 hours): Temp Pulse Resp BP Pulse Ox 98.1 F 56 L 20 125/74 98 02/07/17 07:59 02/07/17 07:59 02/07/17 07:59 02/07/17 07:59 02/07/17 07:59 - Medications Medications: Current Medications Brimonidine Tartrate (Alphagan 0.2% Opht) 1 drop OS BID [facility] Stop: 02/09/17 23:59 Last Admin: 02/07/17 09:33 Dose: 1 drop Dorzolamide HCl (Trusopt) 1 drop OS BID [facility] Stop: 02/09/17 23:59 Last Admin: 02/07/17 09:36 Dose: 1 drop Enoxaparin Sodium (Lovenox) 40 mg SC DAILY [facility] PRN Reason: Protocol Last Admin: 02/07/17 09:34 Dose: 40 mg Cefazolin Sodium 1 gm/ Sodium (Chloride) 100 mls @ 100 mls/hr IVPB Q8 [facility] Last Admin: 02/07/17 09:33 Dose: 100 mls/hr Lactulose (Enulose) 20 gm PO DAILY PRN PRN Reason: Constipation Last Admin: 02/07/17 11:50 Dose: 20 gm Levothyroxine Sodium (Synthroid) 25 mcg PO DAILY [facility] Last Admin: 02/07/17 09:37 Dose: 25 mcg Morphine Sulfate (Morphine) 4 mg IVP Q4 PRN PRN Reason: Pain, moderate (4-7) Last Admin: 02/07/17 06:25 Dose: 4 mg Ondansetron HCl (Zofran Inj) 4 mg IVP Q6 PRN PRN Reason: Nausea/Vomiting Oxycodone/Acetaminophen (Percocet 5/325 Mg Tab) 2 tab PO Q4 PRN PRN Reason: Pain, moderate (4-7) Stop: 02/08/17 10:35 Last Admin: 02/06/17 13:23 Dose: 2 tab Prednisone (Prednisone Tab) 25 mg PO DAILY [facility] Last Admin: 02/07/17 09:35 Dose: 25 mg Pyridostigmine [place] (Mestinon Tab) 60 mg PO TID [facility] Last Admin: 02/07/17 09:34 Dose: 60 mg Senna/Docusate Sodium (Senokot S 50 Mg-8.6 Mg) 2 tab PO HS [facility] Last Admin: 02/07/17 00:41 Dose: Not Given Timolol Maleate (Timoptic 0.5% Ophth Soln) 1 drop OD DAILY [facility] Stop: 02/09/17 23:59 Last Admin: 02/07/17 09:35 Dose: 1 drop - Labs Labs: 02/06/17 05:00 02/06/17 05:00 PT 10.4 Seconds (9.8-13.1) 02/04/17 15:42 INR 1.0 (0.9-1.2) 02/04/17 15:42 APTT 29.1 Seconds (25.6-37.1) 02/04/17 15:42 - Constitutional Appears: Non-toxic, No Acute Distress - ENT Exam ENT Exam: Mucous Membranes Moist - Respiratory Exam Respiratory Exam: Clear to Ausculation Bilateral, NORMAL BREATHING PATTERN. absent: Rales, Rhonchi, Wheezes - Cardiovascular Exam Cardiovascular Exam: REGULAR RHYTHM, RRR, +S1, +S2. absent: JVD, Rubs - GI/Abdominal Exam GI & Abdominal Exam: Soft, Normal Bowel Sounds. absent: Tenderness - Neurological Exam Neurological Exam: Alert, Awake, Oriented x3 Assessment and Plan (1) S/P lumbar laminectomy Assessment & Plan: POD#2 drains removed, afebrile, pain controlled PT eval and treat, possible DC to acute rehab. Status: Acute (2) Myasthenia gravis Assessment & Plan: c/w home meds Status: Chronic (3) Hypothyroidism Assessment & Plan: c/w home meds Status: Chronic (4) DVT prophylaxis Assessment & Plan: Lovenox 40mg SC QD Status: Acute
== END 2017-02-07 15:40 | DRG 558 ==
LOC: H.ER 14:49 → H.ERHOLD 17:11 → H.MEDSURG1 17:57 → H.ICU/CCU 02-05 11:21 → H.MEDSURG1 02-06 16:24
PROVIDERS: ADMIT Family Medicine; ATTEND Family Medicine
PROC: 00NY0ZZ Release Lumbar Spinal Cord, Open Approach (ICD-10-PCS; 2017-02-05)
PROC: 0SG10K1 Fusion of 2 or more Lumbar Vertebral Joints with Nonautologous Tissue Substitute, Posterior Approach, Posterior Column, Open Approach (ICD-10-PCS; principal; 2017-02-05 07:45)
DX: M47.26 Other spondylosis with radiculopathy, lumbar region (principal); G70.00 Myasthenia gravis without (acute) exacerbation; I69.351 Hemiplegia and hemiparesis following cerebral infarction affecting right dominant side; M48.06 Spinal stenosis, lumbar region; I10 Essential (primary) hypertension; E03.9 Hypothyroidism, unspecified; E78.5 Hyperlipidemia, unspecified; H26.9 Unspecified cataract; Z79.52 Long term (current) use of systemic steroids

== ENCOUNTER 2017-12-03 09:09 | Day surgery (SDC) | payer OTHER ==
[2017-12-03] MEDS ORDERED: methylPREDNISolone Depo 80 mg/ml Inj ONE (09:38)
[2017-12-03] MEDS ORDERED: Bupivacaine HCl 0.25% PF (30 ml) Inj ONE (09:38)
[2017-12-03] MEDS ORDERED: MethylPREDNISolone Depo 40 mg/ml Inj ONE (09:38)
[2017-12-03] MEDS ORDERED: Iohexol 300 10 ML ONE (09:38)
[2017-12-03] MEDS ORDERED: Lidocaine 2% MPF (5 ml) Inj ONE (09:40)
[2017-12-03 09:54] VITALS: RESP 18
[2017-12-03] MEDS ORDERED: Midazolam 2 MG/2 ML VIAL ONE (09:57)
[2017-12-03 10:09] VITALS: BMI 29.0
[2017-12-03] MEDS ORDERED: Lactated Ringer's 1,000 ML IV ONE (10:21)
[2017-12-03] MEDS ORDERED: methylPREDNISolone Depo 80 mg/ml Inj IM ONE (10:30)
[2017-12-03] MEDS ORDERED: Bupivacaine 0.25% Inj(30mL) IJ ONE (10:30)
[2017-12-03] MEDS ORDERED: MethylPREDNISolone Depo 40 mg/ml Inj IM ONE (10:30)
[2017-12-03] MEDS ORDERED: Iohexol 300 10 ML IJ ONE (10:30)
[2017-12-03] MEDS ORDERED: Lactated Ringer's 1,000 ML IV SCH (11:00)
--- NOTE | 2017-12-03 12:58 | RAD ---
Date of service: 12/03/2017 PROCEDURE: Fluoroscopy up to 1 hr. HISTORY: EPIDURAL COMPARISON: None TECHNIQUE: Standard protocol for this study/examination. FINDINGS: Total fluoroscopic time (continuous mode) utilized during the procedure (seconds) 92.6. IMPRESSION: Total exam DLP: 60.96 (mGy)
[2017-12-03 13:34] VITALS: BP 129/79; PULSE 56; TEMP 94; O2SAT 99
--- NOTE | 2017-12-03 23:09 | OP ---
PROCEDURE DATE: 12/03/2017 PREOPERATIVE DIAGNOSIS: Lumbar spinal stenosis. POSTOPERATIVE DIAGNOSIS: Lumbar spinal stenosis. PROCEDURE: Bilateral L5-S1 transforaminal epidural steroid injection. SURGEON: Sully Ivory MD ANESTHESIOLOGIST: Nilo Aguilar MD TYPE OF ANESTHESIA: Monitored anesthesia care. COMPLICATIONS: None. SPECIMEN: None. DESCRIPTION OF PROCEDURE: After we had discussion of the procedure with the patient including its risks, benefits, alternatives, outcome data, possibility of no effect or increased pain, the patient consented to the procedure. He denies any recent infection, bleeding tendencies, or being on anticoagulants. The decision was then made to proceed to the OR. The patient was placed on the fluoroscopy table in a prone position with two pillows underneath his abdomen. The back was prepped and draped in the usual sterile fashion, and a sterile technique was adhered to during the entire procedure. The L5 vertebral level was first identified in the anteroposterior view. Angulation towards the right at approximately 25 degrees was used to maximize visualization of the right L5 pedicle. The skin overlying the 6 o'clock position of the pedicle was then infiltrated with 1% lidocaine using 25-gauge needle. Subsequently, a 22-gauge 5-inch spinal needle was incrementally advanced under fluoroscopic guidance until the tip of needle walked into the intervertebral foramen. After satisfactory positioning of the needle, approximately 0.5 mL of Isovue contrast was injected showing appropriate epidural and nerve root spread without any signs of CSF or intravenous involvement. At this point, approximately 3 mL of 0.25% Marcaine and Depo-Medrol mixture was injected. The needle was then removed, and same exact procedure was performed on the contralateral left side using the same medications and techniques. The needle was then removed. The bilateral foramen was visualized on the anterior-posterior view. The skin overlying the 11 o'clock position of both foramen was then infiltrated with 1% lidocaine using 25-gauge needle. Subsequently, a 22-gauge 5-inch spinal needle was incrementally advanced under fluoroscopic guidance until the tip of needle made bony contact with the target. The needle was then turned and walked slightly into the foramen. After satisfactory positioning of both needles, approximately 0.5 mL of Isovue contrast was injected showing appropriate spread. There was blood in the half of the needle on the right side. The needle was then withdrawn slightly approximately 5 mm until the blood was not seen anymore. At this point, approximately 3 mL of 0.5% Marcaine and Depo-Medrol mixture was injected. The needle was then removed, and the patient's back was cleaned, and dry bandages were applied. The patient was then transferred to the recovery area in good condition without any signs of BLISTER PACKING MACHINE TENDER toxicity or any neurological deficits. He will have a followup in our office in approximately 2 to 4 weeks. En-Rod Ivory MD
== END 2017-12-03 13:30 | disposition home or self-care (01) ==
LOC: H.OPSURG 09:09
PROVIDERS: ATTEND Anesthesiology
DX: M48.061 Spinal stenosis, lumbar region without neurogenic claudication (principal); Z86.73 Personal history of transient ischemic attack (TIA), and cerebral infarction without residual deficits; E78.5 Hyperlipidemia, unspecified; I10 Essential (primary) hypertension; E03.9 Hypothyroidism, unspecified; I25.2 Old myocardial infarction; G70.00 Myasthenia gravis without (acute) exacerbation; H54.40 Blindness, one eye, unspecified eye
CPT/HCPCS: 64483; J1030; J1040; J2250; J3010; J7120; Q9967

== ENCOUNTER 2018-03-17 09:41 | Day surgery (SDC) | payer OTHER ==
[2018-03-17 10:28] VITALS: BMI 28.4
[2018-03-17] MEDS ORDERED: Lactated Ringer's 1,000 ML IV ONE (10:45)
[2018-03-17] MEDS ORDERED: methylPREDNISolone Depo 80 mg/ml Inj IM ONE (10:53)
[2018-03-17] MEDS ORDERED: Lidocaine 1% Inj (20ml) IJ ONE (10:53)
[2018-03-17] MEDS ORDERED: Iohexol 300 10 ML IJ ONE (10:53)
[2018-03-17] MEDS ORDERED: Bupivacaine HCl 0.25% PF (30 ml) Inj IJ ONE (10:53)
[2018-03-17] MEDS ORDERED: MethylPREDNISolone Depo 40 mg/ml Inj IM ONE (10:53)
[2018-03-17] MEDS ORDERED: Lactated Ringer's 1,000 ML IV SCH (11:30)
[2018-03-17 11:38] VITALS: RESP 18
[2018-03-17 12:29] VITALS: TEMP 97.6; O2SAT 98
[2018-03-17 13:10] VITALS: BP 135/78; PULSE 58
--- NOTE | 2018-03-17 22:40 | OP ---
PROCEDURE DATE: 03/17/2018 PREOPERATIVE DIAGNOSIS: Failed back syndrome. POSTOPERATIVE DIAGNOSIS: Failed back syndrome. PROCEDURE: Right L4-L5, L5-S1 transforaminal epidural steroid injections and right cluneal nerve block. ANESTHESIOLOGIST: Dr. Dey. SURGEON: Sully Ivory MD ANESTHESIA TYPE: Monitored anesthesia care. COMPLICATIONS: None. SPECIMEN: None. DESCRIPTION OF PROCEDURE: Procedure is as follows. After we had a discussion of the procedure with the patient including its risks, benefits, alternatives, outcome data, and possibility of no effect or increased pain, the patient consented to the procedure. He denies any recent infection, bleeding tendencies, or being on anticoagulants. A decision was then made to proceed to the OR. The patient was placed on the fluoroscopy table in a prone position with two pillows underneath his abdomen. The back was prepped and draped in the usual sterile fashion. A sterile technique was adhered to during the entire procedure. The L4 and L5 vertebral levels were first identified in the anteroposterior view. Angulation towards the right at approximately 20 degrees was used to maximize the visualization of the right L4 and L5 pedicles. The skin overlying the 6 o'clock position of both pedicles was then infiltrated with 1% lidocaine using a 25-gauge needle. Subsequently, a 22-gauge 5-inch spinal needle was then incrementally advanced under fluoroscopic guidance until tip of the needle walked into the intervertebral foramen. This was confirmed by injecting approximately 0.5 mL Isovue contrast, which showed appropriate epidural nerve root spread without any signs of CSF or intervenous involvement. At this point, approximately 3 mL of 0.25% Marcaine and Depo-Medrol mixture was injected. The needle was then removed. Then, the cluneal nerves were located on the upper border of the iliac crest on the right side. The skin overlying this area was infiltrated 1% lidocaine using 25-gauge needle. Subsequently, a 22-gauge 5-inch spinal needle was then inserted perpendicular to the skin towards this area until bony contact was made. Approximately 2 mL of 0.25% Marcaine and Depo-Medrol mixture was dispersed from the sacroiliac border up towards the top of the iliac crest on the right side. The medication was deposited as five separate locations at 1 cm distance from each other. At the end of the procedure, the patient's back was cleaned and dried and bandages were applied. The patient was then transferred to the recovery area in good condition without any signs of NEGOTIATOR toxicity or any neurological deficit. He will be following in our office in approximately two to four weeks. En-Rod Ivory MD
--- NOTE | 2018-03-18 11:38 | RAD ---
Date of service: 03/17/2018 PROCEDURE: Fluoroscopy up to 1 hr. HISTORY: PAIN MANAGEMENT COMPARISON: None TECHNIQUE: Standard protocol for this study/examination. FINDINGS: Total fluoroscopic time (continuous mode) utilized during the procedure 46.3 (seconds). Total exam DLP: 2815 (mGy). IMPRESSION: Less than 1 hr fluoroscopic assistance provided during performance of the procedure.
== END 2018-03-17 13:15 | disposition home or self-care (01) ==
LOC: H.OPSURG 09:41
PROVIDERS: ATTEND Anesthesiology
DX: M54.16 Radiculopathy, lumbar region (principal); Z86.73 Personal history of transient ischemic attack (TIA), and cerebral infarction without residual deficits; E78.5 Hyperlipidemia, unspecified; I10 Essential (primary) hypertension; G70.00 Myasthenia gravis without (acute) exacerbation
CPT/HCPCS: 64483; 64484; J1030; J1040; J2250; J3010; J7120; Q9967

== ENCOUNTER 2018-06-15 09:26 | Day surgery (SDC) | payer OTHER ==
[2018-06-15] MEDS ORDERED: Lactated Ringer's 500 ML IV ONE ×2 (12:30→12:48)
[2018-06-15] MEDS ORDERED: Propofol 10 mg/ml Inj (20 ML) ONE (12:40)
[2018-06-15] MEDS ORDERED: Etomidate 20 mg/10ml Inj IV ONE (12:40)
[2018-06-15] MEDS: Lactated Ringer's 500 ML IV ONE ×2 (12:48→13:05)
[2018-06-15 13:53] VITALS: BP 105/77; PULSE 50; RESP 18; TEMP 96.8; O2SAT 95
== END 2018-06-15 14:17 | disposition home or self-care (01) ==
LOC: H.ENDO 09:26
PROVIDERS: ATTEND Internal Medicine Gastroenterology
DX: Z12.11 Encounter for screening for malignant neoplasm of colon (principal); E78.5 Hyperlipidemia, unspecified; I10 Essential (primary) hypertension; Z79.52 Long term (current) use of systemic steroids; Z79.899 Other long term (current) drug therapy; I69.351 Hemiplegia and hemiparesis following cerebral infarction affecting right dominant side; G70.00 Myasthenia gravis without (acute) exacerbation; Z86.19 Personal history of other infectious and parasitic diseases; D12.6 Benign neoplasm of colon, unspecified; K64.8 Other hemorrhoids
CPT/HCPCS: 45381; 45385; 88305; J2001; J2704; J7120